=== PATIENT | female | born 1985 | race Caucasian/White ===

== ENCOUNTER 2020-01-24 09:38 | Emergency (ER) | payer OTHER, SELFPAY ==
[2020-01-24 09:57] VITALS: BP 154/63; PULSE 78; RESP 20; TEMP 37.2; O2SAT 98; BMI 25.4
--- NOTE | 2020-01-24 10:10 | PC.NURSE ---
provider at bedside for primary eval.
--- NOTE | 2020-01-24 10:15 | XR_ITS ---
EXAMINATION: XR RIBS, LEFT chest PA CLINICAL INFORMATION: Chest pain. COMPARISON: None TECHNIQUE: 3 views of the left ribs were obtained. Annual chest PA and FINDINGS: Lungs are clear. No consolidation, pneumothorax, or pleural effusion. The cardiomediastinal silhouette and pulmonary vasculature are normal. Multiple views of left ribs reveal no visible rib fracture or bony abnormality. The soft tissues are normal. XR/XR ribs LT min 3V w CXR1V IMPRESSION: Unremarkable chest exam. No visible left rib fracture.
--- NOTE | 2020-01-24 10:15 | ECG_ITS ---
Test Reason : DIFFICULTY BREATHING Blood Pressure : / mmHG Vent. Rate : 055 BPM Atrial Rate : 055 BPM P-R Int : 114 ms QRS Dur : 076 ms QT Int : 404 ms P-R-T Axes : 046 060 053 degrees QTc Int : 386 ms Sinus bradycardia with Premature atrial complexes Otherwise normal ECG When compared to the previous EKG of No significant changes seen Referred By: Alannah Montanez Electronically Signed By:TEENA ULLOA MD
--- NOTE | 2020-01-24 10:26 | ED.GENADULT ---
HPI - General Adult General Chief complaint: Dyspnea <Alannah Montanez NP - Last Filed: 01/24/20 16:10> Stated complaint: Multiple Complaints <Alannah Montanez NP - Last Filed: 01/24/20 16:10> Time Seen by Provider: 01/24/20 09:57 <Alannah Montanez NP - Last Filed: 01/24/20 16:10> Source: patient <Alannah Montanez NP - Last Filed: 01/24/20 16:10> Mode of arrival: ambulatory <EMMA Patterson Last Filed: 01/24/20 16:10> Limitations: no limitations <EMMA Patterson Last Filed: 01/24/20 16:10> History of Present Illness HPI narrative: 34yo female previously healthy Here with multiple complaints. The patient tells me since yesterday she has had some left-sided rib and back and abdominal pain with no radiation. She tells me she has some shortness of breath and feels like the pain takes her breath away. She has a dry occasional cough. No fevers or chills. No nausea, vomiting, diarrhea. No urinary symptoms. The patient went to [facility] and had a rapid COVID test which was reportedly negative and was sent to the emergency department for further evaluation. Of note, the patient tells me she has a abdominal mass which she was seen by her primary care doctor for and has an outpatient ultrasound next week to evaluate further. No weight loss, body aches. NO OCP use, no h.o DVT/PE. patient received a guest relation officer. She denies any injury, trauma, heavy lifting or bending. <Alannah Montanez NP - Last Filed: 01/24/20 16:10> Onset (ago): day(s) <EMMA Patterson Last Filed: 01/24/20 16:10> Related Data Home medications: Home Medications Medication Instructions Recorded Confirmed fluticasone propionate 50 1 spray INTRANASAL BID 01/15/20 01/15/20 mcg/actuation nasal spray,suspension Previous Rx's Medication Instructions Recorded omeprazole 20 mg capsule,delayed 20 mg PO DAILY 30 Days #30 cap 01/15/20 release sumatriptan succinate 25 mg tablet 25 mg PO QID PRN 14 Days #30 tab 01/15/20 acetaminophen 650 mg PO Q6H PRN #20 cap 01/24/20 cyclobenzaprine 10 mg PO TID PRN #20 tab 01/24/20 lidocaine [Lidoderm] 1 patch TOPICAL DAILY #15 ea 01/24/20 ferrous sulfate 325 mg (65 mg 325 mg PO DAILY 60 Days #60 tab 02/06/20 iron) tablet <Alannah Montanez NP - Last Filed: 01/24/20 16:10> Allergies/adverse reactions: Allergies Allergy/AdvReac Type Severity Reaction Status Date / Time prednisone [PREDNISONE] Allergy Unknown SWELLING Unverified 11/09/19 17:14 ketorolac Allergy Swelling Verified 01/15/20 13:56 <Alannah Montanez NP - Last Filed: 01/24/20 16:10> Review of Systems Review of Systems: Yes all other systems are reviewed and are negative <EMMA Patterson Last Filed: 01/24/20 16:10> Constitutional: Constitutional: Reports no additional constitutional complaints, Denies body ache(s), Denies chills, Denies fever(s), Denies headache(s) and Denies weakness <EMMA Patterson Last Filed: 01/24/20 16:10> Eyes: Eyes: Reports no additional eye complaints and Denies change in vision <EMMA Patterson Last Filed: 01/24/20 16:10> ENT: Reports system reviewed and no additional complaints, except as documented, Denies dizziness, Denies headache(s), Denies nasal congestion, Denies nasal discharge and Denies neck pain <EMMA Patterson Last Filed: 01/24/20 16:10> Cardiovascular: Cardiovascular: Reports no additional cardiovascular complaints, Reports chest pain, Denies leg edema and Reports dyspnea <EMMA Patterson Last Filed: 01/24/20 16:10> Respiratory: Respiratory: Reports no additional respiratory complaints, Reports cough and Reports dyspnea <EMMA Patterson Last Filed: 01/24/20 16:10> Gastrointestinal: Gastrointestinal: Reports no additional gastrointestinal complaints, Reports abdominal pain, Denies diarrhea, Denies nausea and Denies vomiting <Alannah Montanez NP - Last Filed: 01/24/20 16:10> Genitourinary: Genitourinary: Reports no additional female genitourinary complaints and Denies urinary incontinence <Alannah Montanez NP - Last Filed: 01/24/20 16:10> Musculoskeletal: Musculoskeletal: Reports no additional musculoskeletal complaints, Reports back pain, Denies arthralgias, Denies joint swelling, Denies neck pain, Denies numbness and Denies tingling <Alannah Montanez NP - Last Filed: 01/24/20 16:10> Integumentary/Breasts: Skin/Breast: Reports system reviewed and no additional complaints, except as docu and Denies rash <Alannah Montanez NP - Last Filed: 01/24/20 16:10> Neurologic: Reports system reviewed and no additional complaints, except as documented, Denies Abnormal speech present, Denies dizziness, Denies headache(s), Denies numbness, Denies tingling and Denies weakness <Alannah Montanez NP - Last Filed: 01/24/20 16:10> PMFSH Past Medical History Attestation statement: The following information was validated with the patient. <Alannah Montanez NP - Last Filed: 01/24/20 16:10> Source: old records reviewed and nursing notes reviewed <Alannah Montanez NP - Last Filed: 01/24/20 16:10> Medical History: Medical History (Updated 02/09/20 @ 18:35 by Renetta Davis NP) Epigastric hernia Lump in the abdomen Migraine <Alannah Montanez NP - Last Filed: 01/24/20 16:10> Family History Family History: Family History Mother Fibromyalgia Father Lyme disease <Alannah Montanez NP - Last Filed: 01/24/20 16:10> Social History Social History: Social History Alcohol intake: never Smoking Status: Former smoker <Alannah Montanez NP - Last Filed: 01/24/20 16:10> Physical Exam Vital Signs: Vital Signs: Last Vital Signs Temp 99.0 F 01/24/20 09:57 Pulse 78 01/24/20 09:57 Resp 20 01/24/20 09:57 BP 154/63 H 01/24/20 09:57 Pulse Ox 98 01/24/20 09:57 Body Mass Index 25.4 <Alannah Montanez NP - Last Filed: 01/24/20 16:10> Vital Signs: Last Vital Signs Temp 99.0 F 01/24/20 09:57 Pulse 78 01/24/20 09:57 Resp 01/24/20 09:57 BP 154/63 H 01/24/20 09:57 Pulse Ox 98 01/24/20 09:57 Body Mass Index 25.4 <Rusty Wan MD - Last Filed: 02/11/20 20:28> Const: General: cooperative, healthy appearing, comfortable and no acute distress <Alannah Montanez NP - Last Filed: 01/24/20 16:10> Orientation/consciousness: patient oriented x3 <Alannah Montanez NP - Last Filed: 01/24/20 16:10> Limitations: no limitations <Alannah Montanez NP - Last Filed: 01/24/20 16:10> HENMT: Head: Yes normal to inspection <Alannah Montanez NP - Last Filed: 01/24/20 16:10> Ears: hearing grossly normal bilaterally <Alannah Montanez NP - Last Filed: 01/24/20 16:10> General nose exam: Normal external nose present <Alannah Montanez NP - Last Filed: 01/24/20 16:10> Face and sinus: Yes normal facial exam <Alannah Montanez NP - Last Filed: 01/24/20 16:10> Mouth: Normal oral and palatal mucosa present <Alannah Montanez NP - Last Filed: 01/24/20 16:10> Throat: Yes posterior oropharynx normal <Alannah Montanez NP - Last Filed: 01/24/20 16:10> Eyes: General: appearance normal, both eyes and all related structures <Alannah Montanez NP - Last Filed: 01/24/20 16:10> Pupils: Equal, round and reactive pupils present <Alannah Montanez NP - Last Filed: 01/24/20 16:10> Neck: Neck: Yes normal visual inspection <Alannah Montanez NP - Last Filed: 01/24/20 16:10> Chest: Other: Left lateral and anterior rib tenderness with no crepitus, ecchymosis, deformity. Pain is worsened with palpation and movement. <Alannah Montanez NP - Last Filed: 01/24/20 16:10> Chest palpation & inspection: normal inspection of the chest <Alannah Montanez NP - Last Filed: 01/24/20 16:10> Resp: Effort & Inspection: normal respiratory effort <Alannah Montanez NP - Last Filed: 01/24/20 16:10> Auscultation: clear to auscultation bilaterally <Alannah Montanez NP - Last Filed: 01/24/20 16:10> Cardio: Rate: regular rate <Alannah Montanez NP - Last Filed: 01/24/20 16:10> Rhythm: regular rhythm <Alannah Montanez NP - Last Filed: 01/24/20 16:10> Peripheral pulses: Peripheral pulses 2+ throughout <Alannah Montanez NP - Last Filed: 01/24/20 16:10> GI: Other: just above the umbilicus there is a firm circular mass about the size of all of which is tender. There is no redness or fluctuance or induration. <Alannah Montanez NP - Last Filed: 01/24/20 16:10> Inspection: Yes normal to inspection <Alannah Montanez NP - Last Filed: 01/24/20 16:10> Palpation (GI): Soft to palpation, Tenderness to palpation present (GI) in the LUQ and no guarding <Alannah Montanez NP - Last Filed: 01/24/20 16:10> Auscultation: normal bowel sounds <Alannah Montanez NP - Last Filed: 01/24/20 16:10> : General: Yes no CVA tenderness <Alannah Montanez NP - Last Filed: 01/24/20 16:10> Back/Spine/Pelvis: Other: Left lumbar and lower thoracic soft tissue and paraspinal tenderness. No midline tenderness, step-offs or deformities. Pain is worsened with flexion and extension of the lumbar spine. <Alannah Montanez NP - Last Filed: 01/24/20 16:10> Back: no CVA tenderness <Alannah Montanez NP - Last Filed: 01/24/20 16:10> Thoracic/Lumbar Spine: thoracic and lumbar spine normal to inspection <Alannah Montanez NP - Last Filed: 01/24/20 16:10> Skin: General skin exam: no rashes or lesions noted <Alannah Montanez NP - Last Filed: 01/24/20 16:10> Neuro: General: patient oriented x3, no focal motor deficits and normal sensation to monofilament <Alannah Montanez NP - Last Filed: 01/24/20 16:10> Cranial nerves: Yes Equal, round and reactive pupils present <Alannah Montanez NP - Last Filed: 01/24/20 16:10> Cognition (Neuro): normal cognition <Alannah Montanez NP - Last Filed: 01/24/20 16:10> Speech: No Abnormal speech present <Alannah Montanez NP - Last Filed: 01/24/20 16:10> Gait exam (Neuro): Normal gait present <Alannah Montanez NP - Last Filed: 01/24/20 16:10> Motor exam (neuro): 5/5 motor strength present throughout <Alannah Montanez NP - Last Filed: 01/24/20 16:10> Extrem: General: Yes normal to inspection <Alannah Montanez NP - Last Filed: 01/24/20 16:10> Course Course Course Narrative: 34-year-old female here with complaints of left sided back/abdominal/chest pain. Seems more MS, reproducible on exam with no other focal finding on exam. does have a small palpable mass in the upper abdomen which patient tells me she has an outpatient ultrasound which is pending. stable vital signs. Will check labs, UA, ur preg, EKG, CXR, SARS/flu. 1540- CT shows moderate constipation Otherwise unremarkable. Labs, UA, EKG, chest x-ray and COVID all negative. I went to re-examine the patient and she is telling me she is feeling much improved. Likely musculoskeletal. I discussed the findings with the patient and she agrees that she feels much improved. We discussed supportive care at home, and follow up with primary care doctor closely. Reviewed worrisome signs and symptoms and when to return to the emergency department. Comfortable with discharge home. Of note, the patient does have a small upper abdominal mass. It is not noted on the CT. She is already scheduled for outpatient ultrasound and follow up with her primary care doctor. The patient will continue to follow this plan. <Alannah Montanez NP - Last Filed: 01/24/20 16:10> I have reviewed the chart <Rusty Wan MD - Last Filed: 02/11/20 20:28> Medical Decision Making MDM Narrative Medical decision making narrative: ACS, PE, renal colic, pancreatitis, MS vs lumbar strain, abdominal mass Less likely ACS with symptoms greater than a few days, unremarkable troponin and EKG. Less likely PE with negative D-dimer. Less likely renal colic with unremarkable CT and no evidence of hematuria in the urine. Less likely pancreatitis is unremarkable CT and negative lipase. <Alannah Montanez NP - Last Filed: 01/24/20 16:10> Medical Records Medical records reviewed: Yes I reviewed the patient's medical records. <Alannah Montanez NP - Last Filed: 01/24/20 16:10> Lab Data Lab results reviewed: Yes I reviewed the patient's lab results. <Alannah Montanez NP - Last Filed: 01/24/20 16:10> Result diagrams: : 01/24/20 10:46 01/24/20 10:46 <Alannha Montanez NP - Last Filed: 01/24/20 16:10> Labs: Lab Results 12/04/1301/24/20 01/24/20 Range/Units 10:33 10:46 10:46 WBC 6.3 (4.8-10.8) X10*3/uL RBC 3.72 L (4.20-5.50) X10*6/uL Hgb 11.8 L (12.0-16.0) g/dl Hct 34.1 L (37-47) % MCV 91.7 (80-98) fL MCH 31.7 (27.0-33.0) pg MCHC 34.6 (31.0-35.0) g/dl RDW 11.9 (11.0-16.0) % Plt Count 193 (160-400) X10*3/uL MPV 10.4 (9.4-12.3) fL Immature Gran % (Auto) 0.2 (0.0-0.4) % Neut % (Auto) 45.4 (45-73) % Lymph % (Auto) 42.7 H (20-40) % [place] % (Auto) 10.1 (2-11) % Eos % (Auto) 1.1 (0-4) % Baso % (Auto) 0.5 (0-2) % Lymph # (Auto) 2.7 (1.2-4.9) X10*3/uL [place] # (Auto) 0.6 (0.1-1.2) X10*3/uL Eos # (Auto) 0.1 (0.0-0.4) X10*3/uL Baso # (Auto) 0.0 (0.0-0.2) X10*3/uL Abs Immat Gran (auto) 0.01 (0.00-0.03) X10*3/uL Absolute Neuts (auto) 2.9 (2.0-8.3) X10*3/uL Absolute Nucleated RBC 0.000 (0.0-0.012) X10*3/uL Nucleated RBC % (auto) 0.0 (0.0-0.2) /100WBC PT 12.1 (10.8-13.0) SEC INR 1.0 (0.9-1.1) D-Dimer NG/ML Sodium (135-145) mmol/L Potassium (3.3-5.1) mmol/l Chloride (96-108) mmol/L Carbon Dioxide (22-29) mmol/L Anion Gap (12-20) BUN (9-16) mg/dL Creatinine (0.5-1.4) mg/dL Estim Creat Clear Calc Estimated GFR Random Glucose (60-115) mg/dL Calcium (8.4-10.2) mg/dL Magnesium (1.6-2.6) mg/dL Total Bilirubin (0.0-1.0) mg/dL Direct Bilirubin (0.0-0.5) mg/dL AST (5-31) U/L ALT (0-31) U/L Alkaline Phosphatase (39-117) U/L Troponin I High Sens (<3.5-17.0) ng/L Total Protein (6.5-8.0) g/dL Albumin (3.5-5.0) g/dL Lipase (8-78) U/L Urine Color YELLOW Urine Appearance CLEAR Urine pH 7.5 (5.0-8.0) Ur Specific [place] 1.015 (1.005-1.025) Urine Protein NEG (NEG-TRACE) MG/DL Urine Glucose (UA) NEG (NEG) MG/DL Urine Ketones NEG (NEG) MG/DL Urine Blood TRACE (NEG) Urine Nitrite NEG (NEG) Ur Leukocyte Esterase NEG (NEG) Urine RBC 1-4 (0) /HPF Urine WBC 0 (0-4) /HPF Ur Squamous Epith Cells TRACE /LPF Urine Bacteria NONE /LPF Urine Test NEGATIVE (NEGATIVE) Coronavirus (PCR) (Negative) Influenza Type A (PCR) (Negative) Influenza Type B (PCR) (Negative) RSV RNA Qual (PCR) (Negative) 01/24/20 01/24/20 01/24/20 Range/Units 10:46 10:46 10:46 WBC (4.8-10.8) X10*3/uL RBC (4.20-5.50) X10*6/uL Hgb (12.0-16.0) g/dl Hct (37-47) % MCV (80-98) fL MCH (27.0-33.0) pg MCHC (31.0-35.0) g/dl RDW (11.0-16.0) % Plt Count (160-400) X10*3/uL MPV (9.4-12.3) fL Immature Gran % (Auto) (0.0-0.4) % Neut % (Auto) (45-73) % Lymph % (Auto) (20-40) % [place] % (Auto) (2-11) % Eos % (Auto) (0-4) % Baso % (Auto) (0-2) % Lymph # (Auto) (1.2-4.9) X10*3/uL [place] # (Auto) (0.1-1.2) X10*3/uL Eos # (Auto) (0.0-0.4) X10*3/uL Baso # (Auto) (0.0-0.2) X10*3/uL Abs Immat Gran (auto) (0.00-0.03) X10*3/uL Absolute Neuts (auto) (2.0-8.3) X10*3/uL Absolute Nucleated RBC (0.0-0.012) X10*3/uL Nucleated RBC % (auto) (0.0-0.2) /100WBC PT (10.8-13.0) SEC INR (0.9-1.1) D-Dimer < 200 NG/ML Sodium 139 (135-145) mmol/L Potassium 3.9 (3.3-5.1) mmol/l Chloride 107 (96-108) mmol/L Carbon Dioxide 25 (22-29) mmol/L Anion Gap 11 L (12-20) BUN 10 (9-16) mg/dL Creatinine 0.80 (0.5-1.4) mg/dL Estim Creat Clear Calc 91.5 Estimated GFR > 60 Random Glucose 90 (60-115) mg/dL Calcium 9.2 (8.4-10.2) mg/dL Magnesium 2.1 (1.6-2.6) mg/dL Total Bilirubin 0.7 (0.0-1.0) mg/dL Direct Bilirubin 0.2 (0.0-0.5) mg/dL AST 11 (5-31) U/L ALT 9 (0-31) U/L Alkaline Phosphatase 39 (39-117) U/L Troponin I High Sens < 3.5 (<3.5-17.0) ng/L Total Protein 6.7 (6.5-8.0) g/dL Albumin 4.5 (3.5-5.0) g/dL Lipase 17 (8-78) U/L Urine Color Urine Appearance Urine pH (5.0-8.0) Ur Specific [place] (1.005-1.025) Urine Protein (NEG-TRACE) MG/DL Urine Glucose (UA) (NEG) MG/DL Urine Ketones (NEG) MG/DL Urine Blood (NEG) Urine Nitrite (NEG) Ur Leukocyte Esterase (NEG) Urine RBC (0) /HPF Urine WBC (0-4) /HPF Ur Squamous Epith Cells /LPF Urine Bacteria /LPF Urine Test (NEGATIVE) Coronavirus (PCR) (Negative) Influenza Type A (PCR) (Negative) Influenza Type B (PCR) (Negative) RSV RNA Qual (PCR) (Negative) 01/24/20 Range/Units 12:20 WBC (4.8-10.8) X10*3/uL RBC (4.20-5.50) X10*6/uL Hgb (12.0-16.0) g/dl Hct (37-47) % MCV (80-98) fL MCH (27.0-33.0) pg MCHC (31.0-35.0) g/dl RDW (11.0-16.0) % Plt Count (160-400) X10*3/uL MPV (9.4-12.3) fL Immature Gran % (Auto) (0.0-0.4) % Neut % (Auto) (45-73) % Lymph % (Auto) (20-40) % [place] % (Auto) (2-11) % Eos % (Auto) (0-4) % Baso % (Auto) (0-2) % Lymph # (Auto) (1.2-4.9) X10*3/uL [place] # (Auto) (0.1-1.2) X10*3/uL Eos # (Auto) (0.0-0.4) X10*3/uL Baso # (Auto) (0.0-0.2) X10*3/uL Abs Immat Gran (auto) (0.00-0.03) X10*3/uL Absolute Neuts (auto) (2.0-8.3) X10*3/uL Absolute Nucleated RBC (0.0-0.012) X10*3/uL Nucleated RBC % (auto) (0.0-0.2) /100WBC PT (10.8-13.0) SEC INR (0.9-1.1) D-Dimer NG/ML Sodium (135-145) mmol/L Potassium (3.3-5.1) mmol/l Chloride (96-108) mmol/L Carbon Dioxide (22-29) mmol/L Anion Gap (12-20) BUN (9-16) mg/dL Creatinine (0.5-1.4) mg/dL Estim Creat Clear Calc Estimated GFR Random Glucose (60-115) mg/dL Calcium (8.4-10.2) mg/dL Magnesium (1.6-2.6) mg/dL Total Bilirubin (0.0-1.0) mg/dL Direct Bilirubin (0.0-0.5) mg/dL AST (5-31) U/L ALT (0-31) U/L Alkaline Phosphatase (39-117) U/L Troponin I High Sens (<3.5-17.0) ng/L Total Protein (6.5-8.0) g/dL Albumin (3.5-5.0) g/dL Lipase (8-78) U/L Urine Color Urine Appearance Urine pH (5.0-8.0) Ur Specific [place] (1.005-1.025) Urine Protein (NEG-TRACE) MG/DL Urine Glucose (UA) (NEG) MG/DL Urine Ketones (NEG) MG/DL Urine Blood (NEG) Urine Nitrite (NEG) Ur Leukocyte Esterase (NEG) Urine RBC (0) /HPF Urine WBC (0-4) /HPF Ur Squamous Epith Cells /LPF Urine Bacteria /LPF Urine Test (NEGATIVE) Coronavirus (PCR) NEGATIVE (Negative) Influenza Type A (PCR) NEGATIVE (Negative) Influenza Type B (PCR) NEGATIVE (Negative) RSV RNA Qual (PCR) NEGATIVE (Negative) <Alannah Montanez, [employer]PLICATION DEVELOPER - Last Filed: 01/24/20 16:10> Lab Results 01/24/20 01/24/20 01/24/20 Range/Units 10:33 10:46 10:46 WBC 6.3 (4.8-10.8) X10*3/uL RBC 3.72 L (4.20-5.50) X10*6/uL Hgb 11.8 L (12.0-16.0) g/dl Hct 34.1 L (37-47) % MCV 91.7 (80-98) fL MCH 31.7 (27.0-33.0) pg MCHC 34.6 (31.0-35.0) g/dl RDW 11.9 (11.0-16.0) % Plt Count 193 (160-400) X10*3/uL MPV 10.4 (9.4-12.3) fL Immature Gran % (Auto) 0.2 (0.0-0.4) % Neut % (Auto) 45.4 (45-73) % Lymph % (Auto) 42.7 H (20-40) % [place] % (Auto) 10.1 (2-11) % Eos % (Auto) 1.1 (0-4) % Baso % (Auto) 0.5 (0-2) % Lymph # (Auto) 2.7 (1.2-4.9) X10*3/uL [place] # (Auto) 0.6 (0.1-1.2) X10*3/uL Eos # (Auto) 0.1 (0.0-0.4) X10*3/uL Baso # (Auto) 0.0 (0.0-0.2) X10*3/uL Abs Immat Gran (auto) 0.01 (0.00-0.03) X10*3/uL Absolute Neuts (auto) 2.9 (2.0-8.3) X10*3/uL Absolute Nucleated RBC 0.000 (0.0-0.012) X10*3/uL Nucleated RBC % (auto) 0.0 (0.0-0.2) /100WBC PT 12.1 (10.8-13.0) SEC INR 1.0 (0.9-1.1) D-Dimer NG/ML Sodium (135-145) mmol/L Potassium (3.3-5.1) mmol/l Chloride (96-108) mmol/L Carbon Dioxide (22-29) mmol/L Anion Gap (12-20) BUN (9-16) mg/dL Creatinine (0.5-1.4) mg/dL Estim Creat Clear Calc Estimated GFR Random Glucose (60-115) mg/dL Calcium (8.4-10.2) mg/dL Magnesium (1.6-2.6) mg/dL Total Bilirubin (0.0-1.0) mg/dL Direct Bilirubin (0.0-0.5) mg/dL AST (5-31) U/L ALT (0-31) U/L Alkaline Phosphatase (39-117) U/L Troponin I High Sens (<3.5-17.0) ng/L Total Protein (6.5-8.0) g/dL Albumin (3.5-5.0) g/dL Lipase (8-78) U/L Urine Color YELLOW Urine Appearance CLEAR Urine pH 7.5 (5.0-8.0) Ur Specific [place] 1.015 (1.005-1.025) Urine Protein NEG (NEG-TRACE) MG/DL Urine Glucose (UA) NEG (NEG) MG/DL Urine Ketones NEG (NEG) MG/DL Urine Blood TRACE (NEG) Urine Nitrite NEG (NEG) Ur Leukocyte Esterase NEG (NEG) Urine RBC 1-4 (0) /HPF Urine WBC 0 (0-4) /HPF Ur Squamous Epith Cells TRACE /LPF Urine Bacteria NONE /LPF Urine Test NEGATIVE (NEGATIVE) Coronavirus (PCR) (Negative) Influenza Type A (PCR) (Negative) Influenza Type B (PCR) (Negative) RSV RNA Qual (PCR) (Negative) 01/24/20 01/24/20 01/24/20 Range/Units 10:46 10:46 10:46 WBC (4.8-10.8) X10*3/uL RBC (4.20-5.50) X10*6/uL Hgb (12.0-16.0) g/dl Hct (37-47) % MCV (80-98) fL MCH (27.0-33.0) pg MCHC (31.0-35.0) g/dl RDW (11.0-16.0) % Plt Count (160-400) X10*3/uL MPV (9.4-12.3) fL Immature Gran % (Auto) (0.0-0.4) % Neut % (Auto) (45-73) % Lymph % (Auto) (20-40) % [place] % (Auto) (2-11) % Eos % (Auto) (0-4) % Baso % (Auto) (0-2) % Lymph # (Auto) (1.2-4.9) X10*3/uL [place] # (Auto) (0.1-1.2) X10*3/uL Eos # (Auto) (0.0-0.4) X10*3/uL Baso # (Auto) (0.0-0.2) X10*3/uL Abs Immat Gran (auto) (0.00-0.03) X10*3/uL Absolute Neuts (auto) (2.0-8.3) X10*3/uL Absolute Nucleated RBC (0.0-0.012) X10*3/uL Nucleated RBC % (auto) (0.0-0.2) /100WBC PT (10.8-13.0) SEC INR (0.9-1.1) D-Dimer < 200 NG/ML Sodium 139 (135-145) mmol/L Potassium 3.9 (3.3-5.1) mmol/l Chloride 107 (96-108) mmol/L Carbon Dioxide 25 (22-29) mmol/L Anion Gap 11 L (12-20) BUN 10 (9-16) mg/dL Creatinine 0.80 (0.5-1.4) mg/dL Estim Creat Clear Calc 91.5 Estimated GFR > 60 Random Glucose 90 (60-115) mg/dL Calcium 9.2 (8.4-10.2) mg/dL Magnesium 2.1 (1.6-2.6) mg/dL Total Bilirubin 0.7 (0.0-1.0) mg/dL Direct Bilirubin 0.2 (0.0-0.5) mg/dL AST 11 (5-31) U/L ALT 9 (0-31) U/L Alkaline Phosphatase 39 (39-117) U/L Troponin I High Sens < 3.5 (<3.5-17.0) ng/L Total Protein 6.7 (6.5-8.0) g/dL Albumin 4.5 (3.5-5.0) g/dL Lipase 17 (8-78) U/L Urine Color Urine Appearance Urine pH (5.0-8.0) Ur Specific [place] (1.005-1.025) Urine Protein (NEG-TRACE) MG/DL Urine Glucose (UA) (NEG) MG/DL Urine Ketones (NEG) MG/DL Urine Blood (NEG) Urine Nitrite (NEG) Ur Leukocyte Esterase (NEG) Urine RBC (0) /HPF Urine WBC (0-4) /HPF Ur Squamous Epith Cells /LPF Urine Bacteria /LPF Urine Test (NEGATIVE) Coronavirus (PCR) (Negative) Influenza Type A (PCR) (Negative) Influenza Type B (PCR) (Negative) RSV RNA Qual (PCR) (Negative) 01/24/20 Range/Units 12:20 WBC (4.8-10.8) X10*3/uL RBC (4.20-5.50) X10*6/uL Hgb (12.0-16.0) g/dl Hct (37-47) % MCV (80-98) fL MCH (27.0-33.0) pg MCHC (31.0-35.0) g/dl RDW (11.0-16.0) % Plt Count (160-400) X10*3/uL MPV (9.4-12.3) fL Immature Gran % (Auto) (0.0-0.4) % Neut % (Auto) (45-73) % Lymph % (Auto) (20-40) % [place] % (Auto) (2-11) % Eos % (Auto) (0-4) % Baso % (Auto) (0-2) % Lymph # (Auto) (1.2-4.9) X10*3/uL [place] # (Auto) (0.1-1.2) X10*3/uL Eos # (Auto) (0.0-0.4) X10*3/uL Baso # (Auto) (0.0-0.2) X10*3/uL Abs Immat Gran (auto) (0.00-0.03) X10*3/uL Absolute Neuts (auto) (2.0-8.3) X10*3/uL Absolute Nucleated RBC (0.0-0.012) X10*3/uL Nucleated RBC % (auto) (0.0-0.2) /100WBC PT (10.8-13.0) SEC INR (0.9-1.1) D-Dimer NG/ML Sodium (135-145) mmol/L Potassium (3.3-5.1) mmol/l Chloride (96-108) mmol/L Carbon Dioxide (22-29) mmol/L Anion Gap (12-20) BUN (9-16) mg/dL Creatinine (0.5-1.4) mg/dL Estim Creat Clear Calc Estimated GFR Random Glucose (60-115) mg/dL Calcium (8.4-10.2) mg/dL Magnesium (1.6-2.6) mg/dL Total Bilirubin (0.0-1.0) mg/dL Direct Bilirubin (0.0-0.5) mg/dL AST (5-31) U/L ALT (0-31) U/L Alkaline Phosphatase (39-117) U/L Troponin I High Sens (<3.5-17.0) ng/L Total Protein (6.5-8.0) g/dL Albumin (3.5-5.0) g/dL Lipase (8-78) U/L Urine Color Urine Appearance Urine pH (5.0-8.0) Ur Specific [place] (1.005-1.025) Urine Protein (NEG-TRACE) MG/DL Urine Glucose (UA) (NEG) MG/DL Urine Ketones (NEG) MG/DL Urine Blood (NEG) Urine Nitrite (NEG) Ur Leukocyte Esterase (NEG) Urine RBC (0) /HPF Urine WBC (0-4) /HPF Ur Squamous Epith Cells /LPF Urine Bacteria /LPF Urine Test (NEGATIVE) Coronavirus (PCR) NEGATIVE (Negative) Influenza Type A (PCR) NEGATIVE (Negative) Influenza Type B (PCR) NEGATIVE (Negative) RSV RNA Qual (PCR) NEGATIVE (Negative) <Rusty Wan MD - Last Filed: 02/11/20 20:28> Imaging Data Chest x-ray: Attestation: I personally reviewed and interpreted this imaging study as follows: <Alannah Montanez NP - Last Filed: 01/24/20 16:10> Radiologist's impression: EXAMINATION: XR RIBS, LEFT chest PA CLINICAL INFORMATION: Chest pain. COMPARISON: None TECHNIQUE: 3 views of the left ribs were obtained. Annual chest PA and FINDINGS: Lungs are clear. No consolidation, pneumothorax, or pleural effusion. The cardiomediastinal silhouette and pulmonary vasculature are normal. Multiple views of left ribs reveal no visible rib fracture or bony abnormality. The soft tissues are normal. XR/XR ribs LT min 3V w CXR1V IMPRESSION: Unremarkable chest exam. No visible left rib fracture. <Alannah Montanez NP - Last Filed: 01/24/20 16:10> ECG Data Attestation: I personally reviewed and interpreted this ECG as follows: <Alannah Montanez NP - Last Filed: 01/24/20 16:10> Interpretation: Sinus bradycardia with a rate of 55. Occasional PACs, normal [place], normal QRS, normal QT. <Alannah Montanez NP - Last Filed: 01/24/20 16:10> Discharge Plan Discharge Clinical Impression: Lump in the abdomen, Abdominal pain, Lumbar strain <Alannah Montanez NP - Last Filed: 01/24/20 16:10> Patient Disposition: Home, Self-Care <Alannah Montanez NP - Last Filed: 01/24/20 16:10> Instructions: Low Back Strain (ED), Abdominal Pain (ED) <Alnanah Montanez NP - Last Filed: 01/24/20 16:10> Additional Instructions: heat or ice Gentle stretching No heavy lifting or bending <EMMA Patterson Last Filed: 01/24/20 16:10> Prescriptions: New cyclobenzaprine 10 mg tablet 10 mg PO TID PRN (Reason: muscle spasm) Qty: 20 RF: 0 lidocaine [Lidoderm] 5 % adhesive patch,medicated 1 patch topical DAILY Qty: 15 RF: 0 acetaminophen 325 mg capsule 650 mg PO Q6H PRN (Reason: pain) Qty: 20 RF: 0 No Action ferrous sulfate 325 mg (65 mg iron) tablet 325 mg PO DAILY 60 Days Qty: 60 RF: 0 fluticasone propionate 50 mcg/actuation spray,suspension 1 spray intranasal BID RF: 0 omeprazole 20 mg capsule,delayed release(DR/EC) 20 mg PO DAILY 30 Days Qty: 30 RF: 0 sumatriptan succinate 25 mg tablet 25 mg PO QID PRN (Reason: migraine headache) 14 Days Qty: 30 RF: 0 <Alannah Montanez NP - Last Filed: 01/24/20 16:10> Referrals: Physician,None [Primary Care Provider] - 2 days <Alannah Montanez NP - Last Filed: 01/24/20 16:10> Stand Alone Forms: Work/School Release <Alannah Montanez NP - Last Filed: 01/24/20 16:10> Interventions: ED Discharge Assessment Last Done: 01/24/20 15:43 <Alannah Montanez NP - Last Filed: 01/24/20 16:10> Discharge Date/Time: 01/24/20 16:07 <Alannah Montanez NP - Last Filed: 01/24/20 16:10>
[2020-01-24] MEDS: Morphine Sulfate 4 MG/ML CARTRIDGE IVPUSH (10:50)
[2020-01-24 10:51] LABS: Glucose Urine UA NEG (NEG); Leukocyte Esterase Urine NEG (NEG); Nitrite Urine NEG (NEG); PH 7.5 (5.0-8.0); Specific Gravity - Urine 1.015 (1.005-1.025); Urine Blood TRACE (NEG); Urine Ketones NEG (NEG); Urine Protein NEG (NEG-TRACE)
[2020-01-24 10:52] LABS: MANUAL DIFF FLAG NO
[2020-01-24 10:53] LABS: Basophils Percent Auto 0.5 % (0-2); Eosinophils Absolute Auto 0.1 X10*3/uL (0.0-0.4); Eosinophils Percent Auto 1.1 % (0-4); Hematocrit 34.1 % (37-47); Hemoglobin 11.8 g/dl (12.0-16.0); Imm Gran Abs Auto 0.01 X10*3/uL (0.00-0.03); Imm Gran Pct Auto 0.2 % (0.0-0.4); Lymphocytes Absolute Auto 2.7 X10*3/uL (1.2-4.9); Lymphocytes Percent Auto 42.7 % (20-40); Mean Corpuscular HGB Conc 34.6 g/dl (31.0-35.0); Mean Corpuscular Hemoglobin 31.7 pg (27.0-33.0); Mean Corpuscular Volume 91.7 fL (80-98); Mean Platelet Volume 10.4 fL (9.4-12.3); Monocytes Absolute Auto 0.6 X10*3/uL (0.1-1.2); Monocytes Percent Auto 10.1 % (2-11); Neutrophils Absolute Auto 2.9 X10*3/uL (2.0-8.3); Neutrophils Percent Auto 45.4 % (45-73); Platelet Count 193 X10*3/uL (160-400); Red Blood Count 3.72 X10*6/uL (4.20-5.50); Red Cell Distribution Width 11.9 % (11.0-16.0); White Blood Count 6.3 X10*3/uL (4.8-10.8)
[2020-01-24 10:57] LABS: Appearance Urine CLEAR; Color Urine YELLOW
[2020-01-24 10:58] LABS: UPreg QC Valid YES; Urine Pregnancy NEGATIVE (NEGATIVE)
[2020-01-24 11:00] LABS: Prothrombin Time 12.1 SEC (10.8-13.0)
[2020-01-24 11:07] LABS: Squamous Epithelial Cell Urine TRACE /LPF; WBC Urine 0 /HPF (0-4)
[2020-01-24 11:09] LABS: D Dimer < 200 NG/ML
[2020-01-24 11:21] LABS: Alanine Aminotransferase 9 U/L (0-31); Albumin Level 4.5 g/dL (3.5-5.0); Alkaline Phosphatase 39 U/L (39-117); Anion Gap 11 (12-20); Aspartate Amino Transferase 11 U/L (5-31); Bilirubin Direct 0.2 mg/dL (0.0-0.5); Bilirubin Total 0.7 mg/dL (0.0-1.0); Blood Urea Nitrogen 10 mg/dL (9-16); Calcium 9.2 mg/dL (8.4-10.2); Carbon Dioxide 25 mmol/L (22-29); Chloride 107 mmol/L (96-108); Creatinine Clr Calc Pharmacy 91.5; Estimated Glomerular Filt Rate > 60; Glucose Random 90 mg/dL (60-115); Lipase 17 U/L (8-78); Magnesium 2.1 mg/dL (1.6-2.6); Potassium 3.9 mmol/l (3.3-5.1); Sodium 139 mmol/L (135-145); Total Protein 6.7 g/dL (6.5-8.0)
[2020-01-24 11:28] LABS: Troponin-I High Sensitivity < 3.5 ng/L (<3.5-17.0)
--- NOTE | 2020-01-24 11:33 | CT_ITS ---
EXAMINATION: CT ABDOMEN AND PELVIS WITH CONTRAST CLINICAL INFORMATION: Diffuse abdominal pain, mass in abdomen. COMPARISON: None TECHNIQUE: Multidetector volumetric images were obtained from the superior aspect of the liver through the pubic symphysis following administration 85 mL of Omnipaque 350 intravenous contrast. Sagittal and coronal reformatted images were obtained on the technologist's workstation. Oral contrast: No This CT examination was performed using dose optimization techniques as appropriate, variously including the following: *Automated exposure control *Adjustment of mA and/or kV according to patient size (this includes techniques or standardized protocols for targeted exams where dose is matched to indication/reason for exam; i.e. extremities or head) *Use of iterative reconstruction technique DLP: 497 mGy-cm FINDINGS: LUNG BASES: The lung bases are unremarkable. The heart size is normal. LIVER, GALLBLADDER, AND BILIARY TREE: The liver is normal in size, shape, and attenuation. No focal hepatic lesion or biliary ductal dilatation is present. The gallbladder is unremarkable with no evidence of radiopaque gallstones, gallbladder wall thickening, or obvious pericholecystic inflammatory changes. PANCREAS: Unremarkable. SPLEEN: Unremarkable. ADRENAL GLANDS: Unremarkable. KIDNEYS AND URETERS: The kidneys are normal in size, shape, and attenuation. No hydronephrosis, hydroureter, or calculi seen. No perinephric stranding. BLADDER: Unremarkable. GASTROINTESTINAL TRACT: There is scattered stool and gas seen throughout the colon without significant distention. The small bowel loops are normal caliber. The appendix is not seen well. No free fluid or free air. ABDOMINAL WALL: No significant hernia is appreciated. LYMPH NODES: Normal. VASCULAR: Unremarkable. PELVIC VISCERA: The uterus is anteverted and appears unremarkable. There are hypodensities seen in both ovaries likely small cysts. There is no free fluid in the cul-de-sac. OSSEOUS STRUCTURES: Incidental finding of L4 limbus vertebra. The rest of the lumbar spine is unremarkable. CT/CT abdomen pelvis w con IMPRESSION: 1. No acute intra-abdominal process seen. 2. Moderate constipation. No acute obstruction seen.
[2020-01-24] MEDS: iohexoL 350 MG/ML 100 ML INFUS..BTL IV (12:14)
[2020-01-24 13:20] LABS: Influenza A PCR NEGATIVE (Negative); Influenza B PCR NEGATIVE (Negative); Resp Syncy Virus RNA Qual PCR NEGATIVE (Negative); SARS COV2 PCR INHOUSE NEGATIVE (Negative)
== END 2020-01-24 16:07 | disposition home or self-care (01) ==
PROVIDERS: Nurse Practitioner Family; Emergency Provider Emergency Medicine
DX: S39.012A Strain of muscle, fascia and tendon of lower back, initial encounter (principal); R07.9 Chest pain, unspecified; R10.9 Unspecified abdominal pain; X58.XXXA Exposure to other specified factors, initial encounter; Y93.9 Activity, unspecified; Y92.9 Unspecified place or not applicable; Y99.9 Unspecified external cause status; Z87.891 Personal history of nicotine dependence; Z79.899 Other long term (current) drug therapy; Z20.828 Contact with and (suspected) exposure to other viral communicable diseases
CPT/HCPCS: 0241U; 36415; 71101; 74177; 80048; 80076; 81001; 81025; 83690; 83735; 84484; 85025; 85379; 85610; 93005; 96374; 99283; 99284; J2270; Q9967

== ENCOUNTER 2020-02-06 05:51 | Outpatient (REF) | payer OTHER, SELFPAY ==
--- NOTE | 2020-02-06 07:03 | US_ITS ---
EXAMINATION: US ABDOMEN LIMITED CLINICAL INFORMATION: Other intra-abdominal and pelvic swelling, mass and lump. COMPARISON: CT abdomen and pelvis 01/24/2020. TECHNIQUE: Real-time imaging of the midline epigastric area as indicated by patient. FINDINGS: Limited imaging through the midline epigastric area where patient feels a lump, there is a fat-containing soft tissue density with a small defect in the anterior wall, likely a small epigastric hernia defect measures 3 mm wide. There is 2 small adjacent benign lymph nodes measuring 0.50 0.34 x 0.70 cm and 0.87 0.36 x 0.71 cm. US/US abdomen limited IMPRESSION: Small epigastric fat-containing hernia with a 3 mm wide neck. There are 2 adjacent benign lymph nodes.
[2020-02-06 07:10] LABS: MANUAL DIFF FLAG NO
[2020-02-06 07:20] LABS: Basophils Percent Auto 0.6 % (0-2); Eosinophils Absolute Auto 0.1 X10*3/uL (0.0-0.4); Eosinophils Percent Auto 1.9 % (0-4); Hematocrit 36.5 % (37-47); Hemoglobin 12.4 g/dl (12.0-16.0); Imm Gran Abs Auto 0.01 X10*3/uL (0.00-0.03); Imm Gran Pct Auto 0.2 % (0.0-0.4); Lymphocytes Absolute Auto 3.4 X10*3/uL (1.2-4.9); Lymphocytes Percent Auto 52.3 % (20-40); Mean Corpuscular Hemoglobin 31.6 pg (27.0-33.0); Mean Corpuscular Volume 92.9 fL (80-98); Mean Platelet Volume 10.1 fL (9.4-12.3); Monocytes Absolute Auto 0.6 X10*3/uL (0.1-1.2); Monocytes Percent Auto 9.3 % (2-11); Neutrophils Absolute Auto 2.3 X10*3/uL (2.0-8.3); Neutrophils Percent Auto 35.7 % (45-73); Platelet Count 235 X10*3/uL (160-400); Red Blood Count 3.93 X10*6/uL (4.20-5.50); Red Cell Distribution Width 11.9 % (11.0-16.0); White Blood Count 6.5 X10*3/uL (4.8-10.8)
[2020-02-06 07:32] LABS: Anion Gap 10 (12-20); Blood Urea Nitrogen 11 mg/dL (9-16); Calcium 8.7 mg/dL (8.4-10.2); Carbon Dioxide 28 mmol/L (22-29); Chloride 105 mmol/L (96-108); Estimated Glomerular Filt Rate > 60; Glucose Fasting 90 mg/dL (60-99); Sodium 139 mmol/L (135-145)
== END 2020-02-06 05:52 | disposition home or self-care (01) ==
LOC: HO.US 05:51
PROVIDERS: Visit Provider Nurse Practitioner Family
DX: R19.09 Other intra-abdominal and pelvic swelling, mass and lump (principal)
CPT/HCPCS: 36415; 76700; 76705; 76882; 80048; 85025

== ENCOUNTER 2020-02-19 13:31 | Emergency (ER) | payer OTHER, SELFPAY ==
[2020-02-19 19:44] VITALS: BP 133/68; PULSE 78; RESP 18; TEMP 37.1; O2SAT 100; BMI 25.5
[2020-02-19 20:04] VITALS: BP 137/91; PULSE 96; RESP 16; TEMP 37.2; O2SAT 97; BMI 25.7
[2020-02-19 21:27] VITALS: BP 142/98; PULSE 84; RESP 18; O2SAT 98
--- NOTE | 2020-02-19 21:36 | CT_ITS ---
EXAMINATION: CT ABDOMEN AND PELVIS WITHOUT CONTRAST CLINICAL INFORMATION: Abdominal pain. COMPARISON: CT scan abdomen pelvis 01/24/2020 TECHNIQUE: Multidetector volumetric imaging was performed from the superior aspect of the liver through the pubic symphysis. Sagittal and coronal reformatted images were obtained on the technologist's workstation. This CT examination was performed using dose optimization techniques as appropriate, variously including the following: *Automated exposure control *Adjustment of mA and/or kV according to patient size (this includes techniques or standardized protocols for targeted exams where dose is matched to indication/reason for exam; i.e. extremities or head) *Use of iterative reconstruction technique DLP: 454 mGy-cm FINDINGS: LUNG BASES: The visualized lung bases are unremarkable. LIVER, GALLBLADDER, AND BILIARY TREE: The liver is normal in size, shape, and attenuation. No focal hepatic lesion or biliary ductal dilatation is present. The gallbladder is unremarkable with no evidence of radiopaque gallstones, gallbladder wall thickening, or obvious pericholecystic inflammatory changes. PANCREAS: Unremarkable. SPLEEN: Unremarkable. ADRENAL GLANDS: Unremarkable. KIDNEYS AND URETERS: The kidneys are normal in size, shape, and attenuation. No hydronephrosis, hydroureter, or calculi seen. No perinephric stranding. BLADDER: Unremarkable. GASTROINTESTINAL TRACT: The small and large bowel are unremarkable. The appendix is not visualized. There is no inflammation of the mesentery. ABDOMINAL WALL: No significant hernia is appreciated. LYMPH NODES: Normal. VASCULAR: Unremarkable. PELVIC VISCERA: Unremarkable. OSSEOUS STRUCTURES: Unremarkable. CT/CT abdomen pelvis wo con IMPRESSION: No significant abnormality.
--- NOTE | 2020-02-19 21:38 | ED_ITS ---
HPI - Abdominal Pain General Chief Complaint: Abdominal Pain Stated Complaint: abdominal pain with hernia Source: patient Mode of arrival: ambulatory Limitations: no limitations History of Present Illness HPI narrative: Patient comes emergency room complaining of abdominal pain. Patient states for 3 weeks she has had abdominal pain worse with movement sitting or standing. Patient states she was seen by her primary care physician, and ultrasound was order, she was told that she has a hernia. Patient states for the last 2 days, the pain has been constant, nonradiating, worse with any movement. Patient states the pain is deep inside in the epigastric area. The ultrasound was done on February 05, it showed small epigastric fat containing hernia with a 3 mm wide neck, 2 adjacent benign lymph nodes. Related Data Home Medications Medication Instructions Recorded Confirmed fluticasone propionate 50 1 spray INTRANASAL BID 01/15/20 01/15/20 mcg/actuation nasal spray,suspension Previous Rx's Medication Instructions Recorded omeprazole 20 mg capsule,delayed 20 mg PO DAILY 30 Days #30 cap 01/15/20 release sumatriptan succinate 25 mg tablet 25 mg PO QID PRN 14 Days #30 tab 01/15/20 acetaminophen 650 mg PO Q6H PRN #20 cap 01/24/20 cyclobenzaprine 10 mg PO TID PRN #20 tab 01/24/20 lidocaine [Lidoderm] 1 patch TOPICAL DAILY #15 ea 01/24/20 ferrous sulfate 325 mg (65 mg 325 mg PO DAILY 60 Days #60 tab 02/06/20 iron) tablet Allergies Allergy/AdvReac Type Severity Reaction Status Date / Time prednisone [PREDNISONE] Allergy Unknown SWELLING Unverified 11/09/19 17:14 ketorolac Allergy Swelling Verified 01/15/20 13:56 Review of Systems Review of Systems Constitutional : No Weight loss, No Fever, No Chills, No Night Sweats, No Fatigue, No Malaise ENT/Mouth : No Hearing loss, No Ear Pain, No Nasal Congestion, No Sinus Pain, No Hoarseness, No sore throat, No Rhinorrhea, No Swallowing Difficulty Eyes: No Eye Pain, No Swelling, No Redness, No Foreign Body, No Discharge, No Vision Changes Cardiovascular : No Chest Pain, No SOB, No Dyspnea on Exertion, No Orthopnea, No Edema, No Palpitations Respiratory : No Cough, No Sputum, No Wheezing, No Smoke Exposure, No Dyspnea Gastrointestinal : No Nausea, No Vomiting, No Diarrhea, No Constipation, complaining of deep epigastric pain with movement, No Hematochezia, No Melena Genitourinary : no irregular bleeding, No Dysuria, No Urinary Frequency, No Hematuria, No Urinary Incontinence, No Urgency, No Flank Pain, No Urinary Flow Changes, No Hesitancy Musculoskeletal : No joint pain, No Myalgias, No Joint Swelling Skin : No Skin Lesions, No rash Neuro : No Weakness, No Numbness, No Paresthesias, No Loss of Consciousness, No Dizziness, No Headache Psych : No Anxiety/Panic, No Depression, No SI/HI/AH/VH, No Social Issues, Heme/Lymph: No Bruising, No Bleeding,No Lymphadenopathy Endocrine : No Polyuria, No Polydipsia, No Temperature Intolerance Physical Exam Vital Signs: Vital Signs: Last Vital Signs Temp 99.0 F 02/19/20 20:04 Pulse 84 02/19/20 21:27 Resp 16 02/19/20 23:07 BP 142/98 H 02/19/20 21:27 Pulse Ox 98 02/19/20 21:27 Body Mass Index 25.7 Appearance: Alert. Oriented X3. No acute distress. Eyes: Pupils equal, round and reactive to light. ENT: Pharynx normal. Neck: Normal inspection. Neck supple. No lymph nodes noted. No crepitus CVS: Normal heart rate and rhythm. Pulses normal. Normal S1 and S2 Respiratory: No respiratory distress. Breath sounds normal. No Wheezing. No rales Abdomen: Soft and nontender, mild epigastric pain on deep palpation. No rigidity. No distention. good BS x4 Skin: Skin warm and dry. Normal skin color. Normal skin turgor. Extremities: No lower extremity edema. No lower extremity edema. No Lacerations. No Rash Neuro: Oriented X 3. No motor deficit. No sensory deficit. Moving all extermities. No slurred speech. Course Course Course Narrative: Patient feeling better now that she is reassured, no acute findings on labs or CT scan. As mentioned above, ultrasound done on February 05 showed a 3 mm hernia. MDM - Abdominal Pain Lab Data Result diagrams: 02/19/20 21:49 02/19/20 21:49 Labs: Lab Results 02/19/20 02/19/20 02/19/20 Range/Units 21:45 21:49 21:49 WBC 7.1 (4.8-10.8) X10*3/uL RBC 3.75 L (4.20-5.50) X10*6/uL Hgb 12.0 (12.0-16.0) g/dl Hct 34.3 L (37-47) % MCV 91.5 (80-98) fL MCH 32.0 (27.0-33.0) pg MCHC 35.0 (31.0-35.0) g/dl RDW 12.0 (11.0-16.0) % Plt Count 184 (160-400) X10*3/uL MPV 10.4 (9.4-12.3) fL Immature Gran % (Auto) 0.1 (0.0-0.4) % Neut % (Auto) 37.9 L (45-73) % Lymph % (Auto) 52.0 H (20-40) % [place] % (Auto) 8.6 (2-11) % Eos % (Auto) 1.0 (0-4) % Baso % (Auto) 0.4 (0-2) % Lymph # (Auto) 3.7 (1.2-4.9) X10*3/uL [place] # (Auto) 0.6 (0.1-1.2) X10*3/uL Eos # (Auto) 0.1 (0.0-0.4) X10*3/uL Baso # (Auto) 0.0 (0.0-0.2) X10*3/uL Abs Immat Gran (auto) 0.01 (0.00-0.03) X10*3/uL Absolute Neuts (auto) 2.7 (2.0-8.3) X10*3/uL Absolute Nucleated RBC 0.000 (0.0-0.012) X10*3/uL Nucleated RBC % (auto) 0.0 (0.0-0.2) /100WBC Sodium 140 (135-145) mmol/L Potassium 3.7 (3.3-5.1) mmol/l Chloride 107 (96-108) mmol/L Carbon Dioxide 25 (22-29) mmol/L Anion Gap 12 (12-20) BUN 6 L (9-16) mg/dL Creatinine 0.71 (0.5-1.4) mg/dL Estim Creat Clear Calc 103.8 Estimated GFR > 60 Random Glucose 82 (60-115) mg/dL Calcium 8.8 (8.4-10.2) mg/dL Total Bilirubin 0.5 (0.0-1.0) mg/dL Direct Bilirubin 0.2 (0.0-0.5) mg/dL AST 11 (5-31) U/L ALT 10 (0-31) U/L Alkaline Phosphatase 40 (39-117) U/L Total Protein 6.3 L (6.5-8.0) g/dL Albumin 4.4 (3.5-5.0) g/dL Lipase 15 (8-78) U/L Urine Color STRAW Urine Appearance CLEAR Urine pH 6.0 (5.0-8.0) Ur Specific [place] 1.010 (1.005-1.025) Urine Protein NEG (NEG-TRACE) MG/DL Urine Glucose (UA) NEG (NEG) MG/DL Urine Ketones NEG (NEG) MG/DL Urine Blood TRACE (NEG) Urine Nitrite NEG (NEG) Ur Leukocyte Esterase NEG (NEG) Urine RBC 0-2 (0) /HPF Urine WBC 0 (0-4) /HPF Ur Squamous Epith Cells TRACE /LPF Urine Bacteria NONE /LPF Urine Mucus TRACE /LPF Urine Test NEGATIVE (NEGATIVE) Imaging Data CT scan - abdomen: Radiologist's impression: FINDINGS: LUNG BASES: The visualized lung bases are unremarkable. LIVER, GALLBLADDER, AND BILIARY TREE: The liver is normal in size, shape, and attenuation. No focal hepatic lesion or biliary ductal dilatation is present. The gallbladder is unremarkable with no evidence of radiopaque gallstones, gallbladder wall thickening, or obvious pericholecystic inflammatory changes. PANCREAS: Unremarkable. SPLEEN: Unremarkable. ADRENAL GLANDS: Unremarkable. KIDNEYS AND URETERS: The kidneys are normal in size, shape, and attenuation. No hydronephrosis, hydroureter, or calculi seen. No perinephric stranding. BLADDER: Unremarkable. GASTROINTESTINAL TRACT: The small and large bowel are unremarkable. The appendix is not visualized. There is no inflammation of the mesentery. ABDOMINAL WALL: No significant hernia is appreciated. LYMPH NODES: Normal. VASCULAR: Unremarkable. PELVIC VISCERA: Unremarkable. OSSEOUS STRUCTURES: Unremarkable. CT/CT abdomen pelvis wo con IMPRESSION: No significant abnormality. Discharge Plan Discharge Clinical Impression: Abdominal pain Patient Disposition: Home, Self-Care Instructions: Abdominal Pain (ED), Ventral Hernia (ED) Additional Instructions: Please follow-up with your primary care physician tomorrow. If you have any worsening or new symptoms, please return to the emergency room or call 911 Prescriptions: No Action ferrous sulfate 325 mg (65 mg iron) tablet 325 mg PO DAILY 60 Days Qty: 60 RF: 0 cyclobenzaprine 10 mg tablet 10 mg PO TID PRN (Reason: muscle spasm) Qty: 20 RF: 0 lidocaine [Lidoderm] 5 % adhesive patch,medicated 1 patch topical DAILY Qty: 15 RF: 0 acetaminophen 325 mg capsule 650 mg PO Q6H PRN (Reason: pain) Qty: 20 RF: 0 fluticasone propionate 50 mcg/actuation spray,suspension 1 spray intranasal BID RF: 0 omeprazole 20 mg capsule,delayed release(DR/EC) 20 mg PO DAILY 30 Days Qty: 30 RF: 0 sumatriptan succinate 25 mg tablet 25 mg PO QID PRN (Reason: migraine headache) 14 Days Qty: 30 RF: 0 Stand Alone Forms: Work/School Release Interventions: LWBS Worksheet Last Done: 02/19/20 18:57 Discharge Date/Time: 02/19/20 18:57 [facility] Past Medical History Medical History Epigastric hernia Lump in the abdomen Migraine Family History Family History Mother Fibromyalgia Father Lyme disease Social History Social History Alcohol intake: never Smoking Status: Former smoker Smoked in Last 30 Days: No Use of substances other than those prescribed or required for medical reasons: No Advance Directives: No Advance Directives Information Provided: Yes
[2020-02-19 21:55] LABS: Basophils Percent Auto 0.4 % (0-2); Eosinophils Absolute Auto 0.1 X10*3/uL (0.0-0.4); Hematocrit 34.3 % (37-47); Imm Gran Abs Auto 0.01 X10*3/uL (0.00-0.03); Imm Gran Pct Auto 0.1 % (0.0-0.4); Lymphocytes Absolute Auto 3.7 X10*3/uL (1.2-4.9); MANUAL DIFF FLAG NO; Mean Corpuscular Volume 91.5 fL (80-98); Mean Platelet Volume 10.4 fL (9.4-12.3); Monocytes Absolute Auto 0.6 X10*3/uL (0.1-1.2); Monocytes Percent Auto 8.6 % (2-11); Neutrophils Absolute Auto 2.7 X10*3/uL (2.0-8.3); Neutrophils Percent Auto 37.9 % (45-73); Platelet Count 184 X10*3/uL (160-400); Red Blood Count 3.75 X10*6/uL (4.20-5.50); White Blood Count 7.1 X10*3/uL (4.8-10.8)
--- NOTE | 2020-02-19 21:56 | PC.NURSE ---
pt computer not working vitals at this time 126/86, hr 70 sat 99 room air. rr reg and even no s/s of distress, needs at bedside, call brice.
[2020-02-19 21:57] LABS: Glucose Urine UA NEG (NEG); Leukocyte Esterase Urine NEG (NEG); Nitrite Urine NEG (NEG); Urine Blood TRACE (NEG); Urine Ketones NEG (NEG); Urine Protein NEG (NEG-TRACE)
[2020-02-19 22:04] LABS: Appearance Urine CLEAR; Color Urine STRAW
[2020-02-19 22:15] LABS: Mucus Urine TRACE /LPF; RBC Urine 0-2 /HPF (0); Squamous Epithelial Cell Urine TRACE /LPF; WBC Urine 0 /HPF (0-4)
[2020-02-19 22:16] LABS: UPreg QC Valid YES; Urine Pregnancy NEGATIVE (NEGATIVE)
[2020-02-19 22:21] LABS: Alanine Aminotransferase 10 U/L (0-31); Albumin Level 4.4 g/dL (3.5-5.0); Alkaline Phosphatase 40 U/L (39-117); Anion Gap 12 (12-20); Aspartate Amino Transferase 11 U/L (5-31); Bilirubin Direct 0.2 mg/dL (0.0-0.5); Bilirubin Total 0.5 mg/dL (0.0-1.0); Blood Urea Nitrogen 6 mg/dL (9-16); Calcium 8.8 mg/dL (8.4-10.2); Carbon Dioxide 25 mmol/L (22-29); Chloride 107 mmol/L (96-108); Creatinine Clr Calc Pharmacy 103.8; Estimated Glomerular Filt Rate > 60; Glucose Random 82 mg/dL (60-115); Lipase 15 U/L (8-78); Potassium 3.7 mmol/l (3.3-5.1); Sodium 140 mmol/L (135-145); Total Protein 6.3 g/dL (6.5-8.0)
[2020-02-19 23:07] VITALS: RESP 16
[2020-02-19] MEDS: Morphine Sulfate 4 MG/ML CARTRIDGE 2 MG IVPUSH (23:07)
[2020-02-19] MEDS: ondansetron HCL 4 MG/2 ML VIAL IVPUSH (23:07)
--- NOTE | 2020-02-19 23:12 | PC.NURSE ---
pt given morphine and zofran iv. for 8/10 mid upper abd pain. 114/73
--- NOTE | 2020-02-19 23:13 | PC.NURSE ---
hr 61 sat 97% room air, bp 114/73
--- NOTE | 2020-02-19 23:49 | PC.NURSE ---
pt vitals at 2312 114/73 70 98% on room air. rr 18 even and reg. 2350 120/68 72 rr 18 even and reg. sat 98% on home.
--- NOTE | 2020-02-20 00:17 | PC.NURSE ---
REVIEWED PT MEDICATIONS RECIEVED WITH STOCK RECEIVERYAKELIN CESAR AND PT IS SAFE TO GO HOME.
== END 2020-02-20 00:04 | disposition home or self-care (01) ==
PROVIDERS: Emergency Provider Emergency Medicine; PCP Nurse Practitioner Family
DX: R10.9 Unspecified abdominal pain (principal); K43.9 Ventral hernia without obstruction or gangrene
CPT/HCPCS: 36415; 74176; 80048; 80076; 81001; 81003; 81025; 83690; 85025; 96374; 96375; 99284; 99285; J2270; J2405

== ENCOUNTER → 2020-04-24 10:17 | Outpatient (BNVA) | payer OTHER, SELFPAY | PROVIDERS: PCP Physician Assistant; Visit Provider Surgery ==

== ENCOUNTER 2020-05-30 06:08 | Day surgery (SDC) | payer OTHER, SELFPAY ==
[2020-05-24 09:45] VITALS: BMI 24.9
--- NOTE | 2020-05-29 11:40 | HO.ANESPROP2 ---
Documented by User: Rebecca Adrian 05/29/20 11:41 HPI - Anesthesia Eval Consult details Narrative: 34yo F for Hernia Repair Epigastric with Mesh PMFSH Active Problems Active Problems: All Active Problems (Updated 02/26/20 @ 20:11 by Renetta Davis NP) Abdominal hernia (Acute) Epigastric hernia (Acute) Migraine (Acute) Lump in the abdomen (Acute) Past Medical History Medical History Abdominal hernia Epigastric hernia Lump in the abdomen Migraine Family History Family History Mother Fibromyalgia Father Lyme disease Paternal Grandmother History of bladder cancer, Onset Age: 30 History of ovarian cancer Maternal Aunt History of kidney cancer Surgical History Surgical History History of ovarian cystectomy History of tonsillectomy and adenoidectomy Social History Social History Are you a primary professional healthcare representative to a significant other at home: No Do you presently have visiting nurse or other home services: No Alcohol intake: never Smoking Status: Former smoker Have you been hit, kicked, punched, or otherwise hurt by someone within the past year? If so, by whom?: No Advance Directives: No Advance Directives Information Provided: No Advance Directives on File: No Recently lost weight without trying: No Meds Allergies Allergy/AdvReac Type Severity Reaction Status Date / Time prednisone [PREDNISONE] Allergy Unknown SWELLING Verified 05/30/20 06:44 ketorolac Allergy Swelling Verified 05/30/20 06:44 Home Medications Medication Instructions Recorded Confirmed Last Taken Type fluticasone propionate 50 1 spray INTRANASAL BID 01/15/20 05/24/20 Unknown History mcg/actuation nasal spray,suspension Exam Exam Date and Time: May 29, 2020 1140 Height,Weight and Vital Signs: Height 5 ft 4 in Weight 65.771 kg Narrative Narrative: EKG 01/2020 Vent. Rate : 055 BPM Atrial Rate : 055 BPM P-R Int : 114 ms QRS Dur : 076 ms QT Int : 404 ms P-R-T Axes : 046 060 053 degrees QTc Int : 386 ms Sinus bradycardia with Premature atrial complexes Otherwise normal ECG When compared to the previous EKG of No significant changes seen Assessment and Plan Assessment Anesthesia Assessment: Chart Reviewed Documented by User: Atiya Adame 05/30/20 07:51 PMFSH Past Medical History Medical History Abdominal hernia Epigastric hernia Lump in the abdomen Migraine Family History Family History Mother Fibromyalgia Father Lyme disease Paternal Grandmother History of bladder cancer, Onset Age: 30 History of ovarian cancer Maternal Aunt History of kidney cancer Surgical History Surgical History History of ovarian cystectomy History of tonsillectomy and adenoidectomy Social History Social History Are you a primary professional healthcare representative to a significant other at home: No Do you presently have visiting nurse or other home services: No Alcohol intake: never Smoking Status: Former smoker Have you been hit, kicked, punched, or otherwise hurt by someone within the past year? If so, by whom?: No Advance Directives: No Advance Directives Information Provided: No Advance Directives on File: No Recently lost weight without trying: No Meds Allergies Allergy/AdvReac Type Severity Reaction Status Date / Time prednisone [PREDNISONE] Allergy Unknown SWELLING Verified 05/30/20 06:44 ketorolac Allergy Swelling Verified 05/30/20 06:44 Home Medications Medication Instructions Recorded Confirmed Last Taken Type fluticasone propionate 50 1 spray INTRANASAL BID 01/15/20 05/24/20 Unknown History mcg/actuation nasal spray,suspension Exam Airway Mallampati Class: II TM Dist: >3cm Neck ROM: Full Loose/Missing/Broken Teeth: No Heart: RRR Lungs: CTA Assessment and Plan Assessment Anesthesia Assessment: Anesthesia Plan Discussed and Chart Reviewed Final Anesthetic Review NPO: Yes ASA Class: II Final Preanesthetic Review: Meds/Allgs Chart Reviewed, Consent Obtained/Reviewed and Anes Risks/Benef Reviewed Patient Risk: Low Procedure Risk: Low Anesthetic Plan Anesthetic Plan: GA Disposition: Standard PACU
[2020-05-30] VITALS (7 sets, daily range): BP systolic 108–118; BP diastolic 40–72; PULSE 55–74; RESP 16–18; TEMP 36.2–37.2; O2SAT 97–100
[2020-05-30 06:49] LABS: UPreg QC Valid YES; Urine Pregnancy NEGATIVE (NEGATIVE)
[2020-05-30] MEDS: Lactated Ringers 1,000 ML 100 ML IVCONT (06:59)
--- NOTE | 2020-05-30 07:36 | MHC.SHP ---
Pre-Procedural Eval Section A The patient is an INPATIENT: No Changes since office visit: Yes Patient answered all questions; No Cold of Flu in the past 2 weeks, No New Medical Problems and No Changes in Medication The History & Physical has been completed within 30 days and I have reviewed it.: Yes Section B Chief Complaint: Epigastric hernia Allergies: Allergies Allergy/AdvReac Type Severity Reaction Status Date / Time prednisone [PREDNISONE] Allergy Unknown SWELLING Verified 05/30/20 06:44 ketorolac Allergy Swelling Verified 05/30/20 06:44 Plan Diagnosis/Plan: Unchanged I have reviewed the history and physical and performed a pertinent physical examination on my patient. No changes have occurred unless specified.
--- NOTE | 2020-05-30 08:09 | W.PM.OPN ---
Operative Note Operative Note Date of Service: 05/30/20 Narrative: Preoperative diagnosis: Epigastric hernia Postoperative diagnosis: Same Procedure: Repair of epigastric hernia without hernia mesh Surgeon: Miguel Sierra MD [employer] Specialist: None Anesthesia: General LMA Indications for procedure: 34-year-old female patient presenting with a lump in the upper abdomen which is non reducible and increases in size with Valsalva. Findings are suggestive of an epigastric hernia. Operative findings: Epigastric hernia with a fascial defect measuring approximately 3 mm in diameter. Specimen: None Estimated blood loss: 3 mL Complications: None Procedure details: Patient was brought to the OR placed in a supine position. After administering general anesthesia the patient's abdomen was prepped with ChloraPrep and draped in a sterile fashion. A surgical time-out was called the consent confirmed. Patient received preoperative antibiotics and Venodyne boots were in place. Local anesthesia consisting of 0.5% Sensorcaine with epinephrine was infiltrated in the midline directly over the midline hernia. A 3 cm incision was made in the midline and carried out through subcutaneous tissue and up to the hernia defect. The hernia defect was then dissected down to the fascia. Preperitoneal fat was found to be herniating through this defect. This was freed down to the preperitoneal space. The preperitoneal fat was then returned to the abdominal cavity. A defect measuring between 2-3 mm was identified. This was much too small to insert a mesh therefore a primary closure was performed. The fascial defect was closed using a [id number] 0 Tycron suture x2. The wounds were then irrigated with saline and suctioned dry. Additional local was infiltrated in the subcutaneous tissue. Deep subcutaneous tissue and dermis were then reapproximated using interrupted 3 0 Polysorb sutures. Skin was closed using a running subcuticular 4 0 Polysorb suture. Steri-Strips 2 x 2 gauze and Tegaderm were then applied. The patient tolerated the procedure well. Sponge, instrument, and needle counts reported as correct. The patient was transferred to PACU in stable condition.
[2020-05-30] MEDS: Acetaminophen 325 MG TABLET 650 MG PO (08:41)
[2020-05-30] MEDS: oxyCODONE HCl Immed Release 5 MG TABLET PO (08:42)
== END 2020-05-30 10:00 | disposition home or self-care (01) ==
PROVIDERS: Nurse Practitioner; PCP Physician Assistant; Visit Provider Surgery
PROC: (CPT 49560; principal; 2020-05-30 07:30)
DX: K43.9 Ventral hernia without obstruction or gangrene (principal)
CPT/HCPCS: 49560; 81025; J0690; J1100; J2250; J2405; J2550; J3010

== ENCOUNTER → 2020-06-12 15:08 | Outpatient (BNVA) | payer OTHER, SELFPAY | PROVIDERS: PCP Physician Assistant; Visit Provider Surgery ==

== ENCOUNTER 2020-09-24 09:32 | Outpatient (REF) | payer OTHER, SELFPAY ==
--- NOTE | ~2020-09-24 | XR_ITS ---
EXAMINATION: XR WRIST, LEFT CLINICAL INFORMATION: Pain status-post injury. COMPARISON: None TECHNIQUE: PA, lateral, and oblique views of the left wrist, together with a dedicated navicular view. FINDINGS: The bones and soft tissues are normal. No fracture. Alignment is anatomic with normal joint spaces. There is a neutral ulnar variance. No erosions or abnormal soft tissue calcifications. XR/XR wrist LT w scaphoid IMPRESSION: Normal left wrist.
== END 2020-09-24 09:33 | disposition home or self-care (01) ==
LOC: HO.XRAY 09:32
PROVIDERS: PCP Physician Assistant; Visit Provider Physician Assistant
DX: S69.92XA Unspecified injury of left wrist, hand and finger(s), initial encounter (principal)
CPT/HCPCS: 73110

== ENCOUNTER → 2020-10-15 15:48 | Outpatient (BNVA) | payer OTHER, SELFPAY | PROVIDERS: PCP Physician Assistant; Visit Provider Surgery ==

== ENCOUNTER 2020-10-21 07:54 | Outpatient (REF) | payer OTHER, SELFPAY ==
--- NOTE | ~2020-10-21 | CT_ITS ---
EXAMINATION: CT ABDOMEN AND PELVIS WITH CONTRAST CLINICAL INFORMATION: Ventral hernia without obstruction or gangrene. COMPARISON: 02/19/2020 CT abdomen and pelvis TECHNIQUE: Multidetector volumetric images were obtained from the superior aspect of the liver through the pubic symphysis following administration 85 mL of Omnipaque 350 intravenous contrast. Sagittal and coronal reformatted images were obtained on the technologist's workstation. Oral contrast: No This CT examination was performed using dose optimization techniques as appropriate, variously including the following: *Automated exposure control *Adjustment of mA and/or kV according to patient size (this includes techniques or standardized protocols for targeted exams where dose is matched to indication/reason for exam; i.e. extremities or head) *Use of iterative reconstruction technique DLP: 258 mGy-cm FINDINGS: LUNG BASES: The visualized lung bases are unremarkable. LIVER, GALLBLADDER, AND BILIARY TREE: Right lobe spans 18.2 cm craniocaudal. Normal attenuation. No focal hepatic lesion or biliary ductal dilatation is present. The gallbladder is unremarkable with no evidence of radiopaque gallstones, gallbladder wall thickening, or obvious pericholecystic inflammatory changes. PANCREAS: Unremarkable. SPLEEN: Unremarkable. ADRENAL GLANDS: Unremarkable. KIDNEYS AND URETERS: The kidneys are normal in size, shape, and attenuation. No hydronephrosis, hydroureter, or calculi seen. No perinephric stranding. BLADDER: Unremarkable. GASTROINTESTINAL TRACT: Paucity of intra-abdominal fat limiting evaluation. The small and large bowel are unremarkable. No dilated bowel loops seen. The appendix is nonvisualized. No mesenteric inflammatory changes are seen. No free fluid. ABDOMINAL WALL: No significant hernia is appreciated. LYMPH NODES: No enlarged lymph nodes are visualized. VASCULAR: Normal caliber aorta. Portal vein is enhancing. PELVIC VISCERA: Within normal limits. Anteverted uterus. OSSEOUS STRUCTURES: No acute or suspicious osseous abnormality. CT/CT abdomen pelvis w con IMPRESSION: No acute intra-abdominal process is identified. Right lobe of the liver spans 18.2 cm. No focal liver lesions or biliary duct dilatation.
[2020-10-21] MEDS: iohexoL 350 MG/ML 100 ML INFUS..BTL IV (08:59)
== END 2020-10-21 07:55 | disposition home or self-care (01) ==
LOC: HO.CT 07:54
PROVIDERS: PCP Physician Assistant; Visit Provider Surgery
DX: K43.9 Ventral hernia without obstruction or gangrene (principal); R63.0 Anorexia; S39.011A Strain of muscle, fascia and tendon of abdomen, initial encounter
CPT/HCPCS: 74177; Q9967

== ENCOUNTER 2021-03-03 09:11 | Outpatient (REF) | payer OTHER, SELFPAY ==
[2021-03-03 09:33] LABS: Binax Internal Control QC Valid; Binax Now Covid-19 Ag Negative (Negative)
== END 2021-03-03 09:12 | disposition home or self-care (01) ==
LOC: HO.HMGCLDS 09:11
PROVIDERS: Visit Provider Internal Medicine
DX: Z20.822 Contact with and (suspected) exposure to COVID-19 (principal); J06.9 Acute upper respiratory infection, unspecified
CPT/HCPCS: 36415

== ENCOUNTER 2021-04-30 09:21 | Outpatient (REF) | payer OTHER, SELFPAY ==
[2021-04-30 10:12] LABS: Hematocrit 39.1 % (37.0-47.0); Hemoglobin 12.7 g/dl (12.0-16.0); Mean Corpuscular HGB Conc 32.5 g/dl (31.0-35.0); Mean Corpuscular Hemoglobin 30.8 pg (27.0-33.0); Mean Corpuscular Volume 94.7 fL (80.0-98.0); Mean Platelet Volume 10.1 fL (9.4-12.3); Platelet Count 249 X10*3/uL (160-400); Red Blood Count 4.13 X10*6/uL (4.20-5.50); Red Cell Distribution Width 12.5 % (11.0-16.0); White Blood Count 4.7 X10*3/uL (4.8-10.8)
[2021-04-30 10:48] LABS: Alanine Aminotransferase 17 U/L (0-31); Albumin Level 4.4 g/dL (3.5-5.0); Alkaline Phosphatase 49 U/L (39-117); Anion Gap 12 (12-20); Aspartate Amino Transferase 15 U/L (5-31); Bilirubin Total 0.4 mg/dL (0.0-1.0); Blood Urea Nitrogen 14 mg/dL (9-16); Calcium 9.6 mg/dL (8.4-10.2); Carbon Dioxide 27 mmol/L (22-29); Chloride 106 mmol/L (96-108); Cholesterol 221 mg/dL; Estimated Glomerular Filt Rate > 60; Glucose Fasting 98 mg/dL (60-99); HDL Cholesterol 61 mg/dL; LDL Cholesterol Calculated 153 mg/dl; Potassium 4.5 mmol/L (3.3-5.1); Sodium 140 mmol/L (135-145); Total Protein 6.7 g/dL (6.5-8.0); Triglycerides 37 mg/dL
[2021-04-30 11:11] LABS: TSH reflex Free T4 0.81 uIU/mL (0.32-4.0)
== END 2021-04-30 09:22 | disposition home or self-care (01) ==
LOC: HO.LAB 09:21
PROVIDERS: PCP Physician Assistant; Visit Provider Physician Assistant
DX: I10 Essential (primary) hypertension (principal); Z13.1 Encounter for screening for diabetes mellitus; Z13.220 Encounter for screening for lipoid disorders; Z13.29 Encounter for screening for other suspected endocrine disorder
CPT/HCPCS: 36415; 80053; 80061; 84443; 85027

== ENCOUNTER 2021-12-24 12:56 | Outpatient (REF) | payer OTHER, SELFPAY ==
[2021-12-25 12:25] LABS: Influenza A PCR NEGATIVE (Negative); Influenza B PCR NEGATIVE (Negative); Resp Syncy Virus RNA Qual PCR NEGATIVE (Negative); SARS COV2 PCR INHOUSE NEGATIVE (Negative)
== END 2021-12-24 12:57 | disposition home or self-care (01) ==
LOC: HO.LAB 12:56
PROVIDERS: Visit Provider Family Medicine
DX: Z20.822 Contact with and (suspected) exposure to COVID-19 (principal); B34.9 Viral infection, unspecified
CPT/HCPCS: 0241U

== ENCOUNTER 2022-01-07 09:00 | Outpatient (REF) | payer OTHER, SELFPAY ==
--- NOTE | ~2022-01-07 | US_ITS ---
EXAMINATION: US ABDOMEN LIMITED CLINICAL INFORMATION: Ventral hernia without obstruction or gangrene. COMPARISON: CT abdomen and pelvis 10/21/2020. TECHNIQUE: Real-time imaging of the region of concern in the midline. FINDINGS: There are multiple small hernias seen along the midline, measuring 0.9 x 0.3 x 0.8 cm with a neck measuring 0.2 cm, 0.9 x 0.3 x 1.0 cm with the neck measured 0.3 cm, 0.7 x 0.3 x 0.8 cm with the neck measured 0.2 cm and 0.8 x 0.3 x 1.5 cm within it measured 0.3 cm. US/US abdomen limited IMPRESSION: Multiple small mid abdominal hernias as described
== END 2022-01-07 09:01 | disposition home or self-care (01) ==
LOC: HO.HMGCX 09:00
PROVIDERS: PCP Physician Assistant; Visit Provider Surgery
DX: K43.9 Ventral hernia without obstruction or gangrene (principal)
CPT/HCPCS: 76705

== ENCOUNTER 2023-04-07 08:15 | Outpatient (AMB) | payer OTHER, SELFPAY ==
--- NOTE | 2023-04-07 08:32 | A.OFFPC_ITS ---
Vital Signs 04/07/23 08:33 04/07/23 08:33 Height 5 ft 4 in 5 ft 4 in Weight 149 lb BMI 25.6 BP 124/80 Blood Pressure Location Lt brachial Lt brachial Position Sitting Sitting Pulse Source Pulse Oximeter Oxygen Delivery Method Room Air Intake Visit Reasons: Medication Follow Up Intake Note: Patient here for medication follow up Automatic Pattern Edger Required: No Accompanied by: Self / Same As Patient Allergies prednisone [PREDNISONE] Allergy (Unknown, Verified 04/07/23 08:41) SWELLING ketorolac Allergy (Verified 04/07/23 08:41) Swelling Medication List - Last Reconciled 04/07/23 by Yo Clemente PA-C bupropion HCl (Wellbutrin SR) 150 mg PO DAILY cyclobenzaprine 10 mg PO TID PRN fluticasone propionate 50 mcg/actuation 1 spray intranasal BID hydroxyzine HCl 25 mg PO BEDTIME PRN 30 days lorazepam 0.5 mg PO BID PRN 5 days ondansetron HCl 4 mg PO Q8H PRN 7 days Tobacco use date assessed: 04/07/23 Dental Screening Dental Screen Date: 04/07/23 Did you have a dental visit in the last 12 months?: No Did you have a dental problem in the last 6 months where you did not have access to dental care?: No Was dental information given to patient?: Patient has dentist [facility] Medical History Abdominal hernia Epigastric hernia Migraine Lump in the abdomen Surgical History History of surgery History of hernia surgery History of ovarian cystectomy History of tonsillectomy and adenoidectomy Family History Mother Fibromyalgia Father Lyme disease Paternal Grandmother History of bladder cancer, Onset Age: 30 History of ovarian cancer Maternal Aunt History of kidney cancer Brother Mental problem Substance abuse Social History Housing: Apartment Are you a primary primary care provider to a significant other at home: No Do you presently have visiting nurse or other home services: No Alcohol intake: former Patient Tobacco Use Status: Former Tobacco user e-Cigarette/Vaping Use: Never Used Second Hand Smoke Exposure: Yes service: No Current occupational status: employed Current occupation: [employer] Cognitive needs: No Hearing needs: No Vision needs: No Questionnaire PHQ-9 Over the last 2 weeks, how often have you been bothered by any of the following problems? 1. Little interest or pleasure in doing things: more than half the days 2. Feeling down, depressed, or hopeless: more than half the days 3. Trouble falling or staying asleep, or sleeping too much: more than half the days 4. Feeling tired or having little energy: nearly every day 5. Poor appetite or overeating: nearly every day 6. Feeling bad about yourself - or that you are a failure or have let yourself or your family down: more than half the days 7. Trouble concentrating on things, such as reading the newspaper or watching television: nearly every day 8. Moving or speaking so slowly that other people could have noticed. Or the opposite - being so fidgety or restless that you have been moving around a lot more than usual: nearly every day 9. Thoughts that you would be better off or of hurting yourself in some way: not at all Total score: 20 Source: Developed by Drs. Bradley Yuan, Marcela Lozada, Reji Trinidad and colleagues, with an educational samina from [employer]. Thrive Questionnaire Date Thrive assessed: 04/07/23 I am a: Patient What is your living situation today?: I have a steady place to live Within the past 12 months, did the food you bought not last and you didn't have the money to get more?: Never true Within the past 12 months, did you worry whether your food would run out before you got money to buy more?: Never true Do you have trouble paying for medicines?: No Do you have trouble getting transportation to medical appointments?: No Do you have trouble paying your heating and electricity bill?: No Do you have trouble taking care of your child, family member or friend?: No Do you have trouble with day-to-day activities such as bathing, preparing meals, shopping, managing finances, etc.?: No Are you currently unemployed and looking for a job?: No Are you interested in more education?: No Please select the resources that you would like help with: None Currently or been in a relationship where the following occur: no concerns reported THRIVE Score: 0 AUDIT C Alcohol Use Questionnaire (AUDIT-C) 1. How often do you have a drink containing alcohol?: Monthly or less 2. How many drinks containing alcohol do you have on a typical day when you are drinking?: 1 or 2 3. How often do you have six or more drinks on one occasion?: Never Total Score: 1 CHANG-7 AMB Questionnaire CHANG-7 Date CHANG - 7 assessed: 04/07/23 Feeling nervous, anxious, or on edge: 3 = Nearly every day Not being able to stop or control worryin = Nearly every day Worrying too much about different things: 3 = Nearly every day Trouble relaxin = Nearly every day Being so restless that it is hard to sit still: 3 = Nearly every day Becoming easily annoyed or irritable: 3 = Nearly every day Feeling afraid as if something awful might happen: 2 = More than half the days Total CHANG-7 score (0-4 normal; 5-9 mild; 10-14 moderate; 15-21 severe): 20 Source: Developed by Drs. Bradley Yuan, Marcela Lozada, Reji Trinidad and colleagues, with an educational samina from [employer]. Physical exam (Primary Care) Vital Signs: Last Vital Signs BP 124/80 04/07/23 08:33 Oxygen Delivery Method Room Air 04/07/23 08:33 BMI result Body Mass Index 25.6 Tobacco/Smoking Status: Tobacco use Status Tobacco use date assessed 04/07/23 04/07/23 08:40 Patient Tobacco Use Status Former Tobacco user 04/07/23 08:40 e-Cigarette/Vaping Use Never Used 04/07/23 08:40 PHQ-9: PHQ-9 Score PHQ-9: Total score 24 04/07/23 09:11 Thrive Assessment: Date of Thrive Assessment Date Thrive assessed 04/07/23 04/07/23 08:40 Currently or been in a relationship where the following occur: no concerns reported Assessment and Plan Assessment & Plan (1) GERD (gastroesophageal reflux disease): Code(s): K21.9 - Gastro-esophageal reflux disease without esophagitis Orders: Orders Comprehensive [place]. Panel Fast Today Z13.1 - Encounter for screening for diabetes mellitus [place] upper GI w Ba Swallow Today K21.9 - Gastro-esophageal reflux disease without esophagitis, K43.9 - Ventral hernia without obstruction or gangrene, R13.10 - Dysphagia, unspecified Referrals General Surgery Referral K43.9 - Ventral hernia without obstruction or gangrene Medications: New methylphenidate HCl ER (Concerta) Partial Fill upon patient request. 36 mg PO DAILY 28 tabs 0RF 28 days F98.8 - Other specified behavioral and emotional disorders with onset usually occurring in childhood and adolescence Coding Diagnoses GERD (gastroesophageal reflux disease) K21.9
--- NOTE | 2023-04-07 08:32 | MHC.PC.OV ---
Vital Signs 04/07/23 08:33 04/07/23 08:33 Height 5 ft 4 in 5 ft 4 in Weight 149 lb BMI 25.6 BP 124/80 Blood Pressure Location Lt brachial Lt brachial Position Sitting Sitting Pulse Source Pulse Oximeter Oxygen Delivery Method Room Air Intake Visit Reasons: Medication Follow Up Lease Broker Required: No Supplier Quality Manager: Not Required per policy Accompanied by: Self / Same As Patient Allergies prednisone [PREDNISONE] Allergy (Unknown, Verified 04/07/23 08:41) SWELLING ketorolac Allergy (Verified 04/07/23 08:41) Swelling Medication List - Last Reconciled 04/07/23 by Yo Clemente PA-C bupropion HCl (Wellbutrin SR) 150 mg PO DAILY cyclobenzaprine 10 mg PO TID PRN fluticasone propionate 50 mcg/actuation 1 spray intranasal BID hydroxyzine HCl 25 mg PO BEDTIME PRN 30 days lorazepam 0.5 mg PO BID PRN 5 days ondansetron HCl 4 mg PO Q8H PRN 7 days Tobacco use date assessed: 04/07/23 Dental Screening Dental Screen Date: 04/07/23 Did you have a dental visit in the last 12 months?: Yes Did you have a dental problem in the last 6 months where you did not have access to dental care?: No Was dental information given to patient?: Patient has dentist HPI Medication Follow Up HPI Details Patient is a 37-year-old female here today for follow-up visit.? At last visit we discussed her generalized anxiety disorder and her inattentive disorder.? She continues to complain of work related stress causing her a lot of anxiety.? . Currently on Wellbutrin 150 mg which she feels is somewhat working. Would like to stay on this dose for now. Unfortunately still suffers with increasing anxiety which she relates to her inability to stay on task and racing thoughts. She does have family history of ADD disorder wonder if she does have the same. She is awaiting to establish with a license mental health therapist. She will do her own research and find 1 locally. . Epigastric hernia:? Continues to have upper epigastric pain upon movements of her trunk. She has had epigastric hernia surgery without mesh though feels it was unsuccessful. Also continues to have upper GI discomfort and dyspepsia. She is interested in a 2nd opinion from general surgeon. Will send for barium swallow to evaluate for hiatal hernia ? [facility] Medical History Abdominal hernia Epigastric hernia Migraine Lump in the abdomen Surgical History History of surgery History of hernia surgery History of ovarian cystectomy History of tonsillectomy and adenoidectomy Family History Mother Fibromyalgia Father Lyme disease Paternal Grandmother History of bladder cancer, Onset Age: 30 History of ovarian cancer Maternal Aunt History of kidney cancer Brother Mental problem Substance abuse Social History Housing: Apartment Are you a primary palliative care specialist to a significant other at home: No Do you presently have visiting nurse or other home services: No Alcohol intake: former Patient Tobacco Use Status: Former Tobacco user e-Cigarette/Vaping Use: Never Used Second Hand Smoke Exposure: Yes service: No Current occupational status: employed Current occupation: [employer] Cognitive needs: No Hearing needs: No Vision needs: No Questionnaire PHQ-9 Over the last 2 weeks, how often have you been bothered by any of the following problems? 1. Little interest or pleasure in doing things: nearly every day 2. Feeling down, depressed, or hopeless: nearly every day 3. Trouble falling or staying asleep, or sleeping too much: nearly every day 4. Feeling tired or having little energy: nearly every day 5. Poor appetite or overeating: nearly every day 6. Feeling bad about yourself - or that you are a failure or have let yourself or your family down: nearly every day 7. Trouble concentrating on things, such as reading the newspaper or watching television: nearly every day 8. Moving or speaking so slowly that other people could have noticed. Or the opposite - being so fidgety or restless that you have been moving around a lot more than usual: nearly every day 9. Thoughts that you would be better off or of hurting yourself in some way: not at all Total score: 24 Depression Screening Interpretation: Positive Depression Screening Follow-up: Existing condition and Community Mental Health Worker F/U Depression Screening Done: Yes 22653 - PHQ-9 Billing: Yes Source: Developed by Drs. Bradley Yuan, Reji Dickey and colleagues, with an educational samina from [employer]. Thrive Questionnaire Date Thrive assessed: 03/25/22 I am a: Patient What is your living situation today?: I have a steady place to live Within the past 12 months, did the food you bought not last and you didn't have the money to get more?: Never true Within the past 12 months, did you worry whether your food would run out before you got money to buy more?: Never true Do you have trouble paying for medicines?: No Do you have trouble getting transportation to medical appointments?: No Do you have trouble paying your heating and electricity bill?: No Do you have trouble taking care of your child, family member or friend?: No Do you have trouble with day-to-day activities such as bathing, preparing meals, shopping, managing finances, etc.?: No Are you currently unemployed and looking for a job?: No Are you interested in more education?: No Please select the resources that you would like help with: None THRIVE Score: 0 AUDIT C Alcohol Use Questionnaire (AUDIT-C) 1. How often do you have a drink containing alcohol?: Never Total Score: 0 CHANG-7 AMB Questionnaire CHANG-7 Date CHANG - 7 assessed: 04/07/23 Feeling nervous, anxious, or on edge: 0 = Not at all Not being able to stop or control worryin = Not at all Worrying too much about different things: 0 = Not at all Trouble relaxin = Not at all Being so restless that it is hard to sit still: 0 = Not at all Becoming easily annoyed or irritable: 0 = Not at all Feeling afraid as if something awful might happen: 0 = Not at all Total CHANG-7 score (0-4 normal; 5-9 mild; 10-14 moderate; 15-21 severe): 0 Source: Developed by Drs. Bradley Yuan, Reji Dickey and colleagues, with an educational samina from [employer]. Review of Systems Const Denies headache(s) Eyes Denies loss of vision ENT Denies vertigo, Denies dizziness, Denies headache(s) and Denies sore throat Card Denies chest pain, Denies leg edema and Denies lightheadedness Resp Denies cough, Denies hemoptysis and Denies wheezing GI Denies abdominal pain, Denies melena, Denies constipation, Denies diarrhea and Denies vomiting Denies urinary frequency, Denies dysuria and Denies urinary urgency Musc Denies arthralgias, Denies joint swelling, Denies numbness and Denies tingling Neuro Denies Abnormal speech present, Denies behavioral changes, Denies vertigo, Denies dizziness, Denies headache(s), Denies loss of vision, Denies memory loss, Denies numbness and Denies tingling Psych Denies anxiety, Denies behavioral changes, Denies depression, Denies memory loss and Denies panic attacks Homer/Lymph Denies easy bleeding and Denies easy bruising Aller/Immun Denies wheezing Physical exam (Primary Care) Vital Signs: Last Vital Signs BP 124/80 04/07/23 08:33 Oxygen Delivery Method Room Air 04/07/23 08:33 BMI result Body Mass Index 25.6 Tobacco/Smoking Status: Tobacco use Status Tobacco use date assessed 04/07/23 04/07/23 08:40 Patient Tobacco Use Status Former Tobacco user 04/07/23 08:40 e-Cigarette/Vaping Use Never Used 04/07/23 08:40 PHQ-9: PHQ-9 Score PHQ-9: Total score 04/07/23 09:25 Depression Screening Interpretation: Positive Depression Screening Follow-up: Existing condition and Community Mental Health Worker F/U Thrive Assessment: Date of Thrive Assessment Date Thrive assessed 04/07/23 04/07/23 08:40 Const General: healthy appearing, no acute distress, alert and awake Nutritional Appearance: well nourished Orientation/consciousness: oriented to person, oriented to place and oriented to time HENMT Ears: TM's normal bilaterally General nose exam: Normal nasal mucous membranes and turbinates present Eyes Conjunctivae: conjunctivae normal Sclerae: sclerae normal Pupils: Equal, round and reactive pupils present Neck Neck: Yes no lymphadenopathy and Yes no JVD Thyroid: Thyroid normal Carotids: no bruits Resp Effort & Inspection: normal respiratory effort and not tachypneic Auscultation: no crackles, no rales, no rhonchi and no wheezes Cardio Rate: regular rate Rhythm: regular rhythm Heart sounds: no murmurs and normal S1 and S2 GI Palpation (GI): Soft to palpation, nontender, no hepatomegaly and no splenomegaly Auscultation: normal bowel sounds Skin General skin exam: no rashes or lesions noted and dry skin Neuro General: oriented to person, oriented to place and oriented to time Cranial nerves: Yes Equal, round and reactive pupils present Speech: No Abnormal speech present Gait exam (Neuro): Normal gait present Motor exam (neuro): no tremor noted Extrem Right upper extremity: full ROM Left upper extremity: full ROM Right lower extremity: full ROM; no edema Left lower extremity: full ROM; no edema Psych Mental Status: mental status grossly normal Speech and movement: Normal speech and movement present Affect: normal affect Attitude: cooperative Thought process: Normal thought process present Assessment and Plan Assessment & Plan (1) CHANG (generalized anxiety disorder): Code(s): F41.1 - Generalized anxiety disorder Plan: Continues to suffer with anxiety that causes her major life issues. She continues on Wellbutrin 150 though feels only minimal effect. She attributes a lot of her anxiety to her inability to stay focused on tasks , racing thoughts and work-related stress. She does have family history of ADD disorder and whenever she has the same. She has not able to establish with a mental therapist and will have community health worker try to establish her. (2) ADD (attention deficit disorder): Code(s): F98.8 - Other specified behavioral and emotional disorders with onset usually occurring in childhood and adolescence Qualifiers: Hyperactivity presence: unspecified Qualified Code(s): F98.8 - Other specified behavioral and emotional disorders with onset usually occurring in childhood and adolescence Plan: Unfortunately has not been able to establish care with any psychiatrist. Wellbutrin has not been effective on helping her gather her thoughts and stay on task. Willing to start Concerta for signs and symptoms of ADD disorder. Follow-up in 3-4 weeks to evaluate effectiveness of the medication. (3) Epigastric hernia: Code(s): K43.9 - Ventral hernia without obstruction or gangrene Plan: Had epigastric hernia repair several years ago though felt she has never fully recovered. She is very active though continues to have epigastric pain and discomfort in her muscles when doing core exercises. She is interested in a 2nd opinion from a general surgeon at [facility]. Will send for barium swallow of the upper GI to evaluate for an epigastric hernia as she does report dyspepsia. (4) MDD (major depressive disorder), recurrent episode, moderate: Code(s): F33.1 - Major depressive disorder, recurrent, moderate Plan: Patient's PHQ-9 score positive for major depression which has worsened as of lately. Had mental health worker see her today in office. Will try to treat her ADD in hopes to help her overall mental health state. Also will try to set her a mental health therapist to help talk things through. Orders: Orders Comprehensive [place]. Panel Fast Today Z13.1 - Encounter for screening for diabetes mellitus [place] upper GI w Ba Swallow Today K21.9 - Gastro-esophageal reflux disease without esophagitis, K43.9 - Ventral hernia without obstruction or gangrene, R13.10 - Dysphagia, unspecified Referrals General Surgery Referral K43.9 - Ventral hernia without obstruction or gangrene Medications: New methylphenidate HCl ER (Concerta) Partial Fill upon patient request. 36 mg PO DAILY 28 days 28 tabs 0RF F98.8 - Other specified behavioral and emotional disorders with onset usually occurring in childhood and adolescence Coding Level of Care Code Est Pt Level 4 (04709) Diagnoses CHANG (generalized anxiety disorder) F41.1 Attention deficit disorder, unspecified hyperactivity presence F98.8 Hyperactivity presence: unspecified Epigastric hernia K43.9 MDD (major depressive disorder), recurrent episode, moderate F33.1
[2023-04-07 08:33] VITALS: BP 124/80; BMI 25.6
== END 2023-04-07 09:41 | disposition home or self-care (01) ==
PROVIDERS: PCP Physician Assistant; Visit Provider Physician Assistant
DX: F41.1 Generalized anxiety disorder (principal); F98.8 Other specified behavioral and emotional disorders with onset usually occurring in childhood and adolescence; K43.9 Ventral hernia without obstruction or gangrene; F33.1 Major depressive disorder, recurrent, moderate
CPT/HCPCS: 99214

== ENCOUNTER 2023-05-04 11:42 | Outpatient (AMB) | payer OTHER, SELFPAY ==
--- NOTE | 2023-05-04 11:38 | MHC.PC.OV ---
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: No Information Interpreted: non-clinical & clinical Environmental Consultant: Not Required per policy Accompanied by: Self / Same As Patient Allergies prednisone [PREDNISONE] Allergy (Unknown, Verified 05/04/23 11:47) SWELLING ketorolac Allergy (Verified 05/04/23 11:47) Swelling Medication List - Last Reconciled 05/04/23 by Yo Clemente PA-C bupropion HCl (Wellbutrin SR) 150 mg PO DAILY cyclobenzaprine 10 mg PO TID PRN lorazepam 0.5 mg PO BID PRN 5 days methylphenidate HCl ER (Concerta) 36 mg PO DAILY 28 days ondansetron HCl 4 mg PO Q8H PRN 7 days Tobacco use date assessed: 04/07/23 Dental Screening Dental Screen Date: 05/04/23 Did you have a dental visit in the last 12 months?: Yes Did you have a dental problem in the last 6 months where you did not have access to dental care?: No Was dental information given to patient?: Patient has dentist HPI f/u ADD med ( telehealth) HPI Details Patient is a 37-year-old female being evaluated today via telephone.? At last visit we discussed her generalized anxiety disorder and her inattentive disorder.? Last visit we discussed her anxiety and ADD disorder. She was started on Concerta and has noticed an improvement in her attention and focus at work. She feel she is able to get a handle on her job tasks now that she is on ADD medication. Her anxiety depression is a bit better as well. She has been connected with a counselor group anticipates starting counseling in near future. COUNTS INCLUDE 234 BEDS AT THE [facility] Medical History Abdominal hernia Epigastric hernia Migraine Lump in the abdomen Surgical History History of surgery History of hernia surgery History of ovarian cystectomy History of tonsillectomy and adenoidectomy Family History Mother Fibromyalgia Father Lyme disease Paternal Grandmother History of bladder cancer, Onset Age: 30 History of ovarian cancer Maternal Aunt History of kidney cancer Brother Mental problem Substance abuse Social History Housing: Apartment Are you a primary director of career resources to a significant other at home: No Do you presently have visiting nurse or other home services: No Alcohol intake: former Patient Tobacco Use Status: Former Tobacco user e-Cigarette/Vaping Use: Never Used Second Hand Smoke Exposure: Yes service: No Current occupational status: employed Current occupation: [employer] Cognitive needs: No Hearing needs: No Vision needs: No Questionnaire Thrive Questionnaire Date Thrive assessed: 04/07/23 CHANG-7 AMB Questionnaire CHANG-7 Date CHANG - 7 assessed: 04/07/23 Source: Developed by Drs. Bradley Yuan, Marcela Lozada, Reji Trinidad and colleagues, with an educational samina from [employer]. Review of Systems Const Denies headache(s) Eyes Denies loss of vision ENT Denies vertigo, Denies dizziness, Denies headache(s) and Denies sore throat Card Denies chest pain, Denies leg edema and Denies lightheadedness Resp Denies cough, Denies hemoptysis and Denies wheezing GI Denies abdominal pain, Denies melena, Denies constipation, Denies diarrhea and Denies vomiting Denies urinary frequency, Denies dysuria and Denies urinary urgency Musc Denies arthralgias, Denies joint swelling, Denies numbness and Denies tingling Neuro Denies behavioral changes, Denies vertigo, Denies dizziness, Denies headache(s), Denies loss of vision, Denies memory loss, Denies numbness and Denies tingling Psych Denies anxiety, Denies behavioral changes, Denies depression, Denies memory loss and Denies panic attacks Homer/Lymph Denies easy bleeding and Denies easy bruising Aller/Immun Denies wheezing Physical exam (Primary Care) Tobacco/Smoking Status: Tobacco use Status Tobacco use date assessed 04/07/23 05/04/23 11:41 Patient Tobacco Use Status Former Tobacco user 05/04/23 11:41 e-Cigarette/Vaping Use Never Used 05/04/23 11:41 Thrive Assessment: Date of Thrive Assessment Date Thrive assessed 04/07/23 05/04/23 11:41 Telehealth Telehealth Location of provider rendering services: practice address Location of patient: address on file Patient Identification confirmed using: Name, : Yes Telehealth method: voice only Patient verbally consented to treatment: Yes Patient verbally consented to billing insurance company: Yes Patient informed of any privacy concerns related to visit: Yes Minutes spent on Phone/Video with Pt.: 11 Assessment and Plan Assessment & Plan (1) ADD (attention deficit disorder): Code(s): F98.8 - Other specified behavioral and emotional disorders with onset usually occurring in childhood and adolescence Qualifiers: Hyperactivity presence: unspecified Qualified Code(s): F98.8 - Other specified behavioral and emotional disorders with onset usually occurring in childhood and adolescence Plan: She is started Concerta 36 mg and has noted a difference in her attention and focus. She does report feeling she has a grasp on her concentration at work. This has been reducing her anxiety and depression. She is willing to increase her dose to 54 mg for a more optimal affect on her attention and focus. (2) CHANG (generalized anxiety disorder): Code(s): F41.1 - Generalized anxiety disorder Plan: Continues to suffer with anxiety that causes her major life issues. She continues on Wellbutrin 150 though feels only minimal effect. (3) MDD (major depressive disorder), recurrent episode, moderate: Code(s): F33.1 - Major depressive disorder, recurrent, moderate Plan: She reports her depression is a bit better since starting new ADD medication. She does have connection now with mental health therapy group been his anticipating getting a mental health therapist and soon psychiatrist. Medications: New methylphenidate HCl ER (Concerta) Partial Fill upon patient request. 54 mg PO DAILY 28 days 28 tabs 0RF F98.8 - Other specified behavioral and emotional disorders with onset usually occurring in childhood and adolescence Refilled ondansetron HCl 4 mg PO Q8H 7 days PRN 21 tabs 0RF nausea and vomiting lorazepam 0.5 mg PO BID 5 days PRN 10 tabs 0RF anxiety F41.1 - Generalized anxiety disorder bupropion HCl (Wellbutrin SR) 150 mg PO DAILY 30 tabs 3RF F41.1 - Generalized anxiety disorder Discontinued methylphenidate HCl ER (Concerta) Partial Fill upon patient request. Discontinued Reason: Doctor's Order 36 mg PO DAILY 28 days 28 tabs 0RF F98.8 - Other specified behavioral and emotional disorders with onset usually occurring in childhood and adolescence Coding Level of Care Code Tele Est Pt Level 4 (56071) Diagnoses Attention deficit disorder, unspecified hyperactivity presence F98.8 Hyperactivity presence: unspecified CHANG (generalized anxiety disorder) F41.1 MDD (major depressive disorder), recurrent episode, moderate F33.1
== END 2023-05-04 12:38 | disposition home or self-care (01) ==
LOC: HO.HMGH 11:42
PROVIDERS: PCP Physician Assistant; Visit Provider Physician Assistant
DX: F98.8 Other specified behavioral and emotional disorders with onset usually occurring in childhood and adolescence (principal); F41.1 Generalized anxiety disorder; F33.1 Major depressive disorder, recurrent, moderate
CPT/HCPCS: 99442

== ENCOUNTER 2023-05-20 08:48 | Outpatient (AMB) | payer OTHER, SELFPAY ==
--- NOTE | 2023-05-20 09:06 | A.OFFPC_ITS ---
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 She has noted a lump/ lymph node over the last month. She has been suffering with as per respiratory symptoms consistent with allergic rhinitis. She is somewhat concerned about a cancer diagnosis. PLAN: Out of abundance of caution will send for ultrasound of this lymph node. [facility] Medical History Abdominal hernia Epigastric hernia Migraine Lump in the abdomen Surgical History History of surgery History of hernia surgery History of ovarian cystectomy History of tonsillectomy and adenoidectomy Family History Mother Fibromyalgia Father Lyme disease Paternal Grandmother History of bladder cancer, Onset Age: 30 History of ovarian cancer Maternal Aunt History of kidney cancer Brother Mental problem Substance abuse Social History Housing: Apartment Are you a primary manager intensive care to a significant other at home: No Do you presently have visiting nurse or other home services: No Alcohol intake: former Patient Tobacco Use Status: Former Tobacco user e-Cigarette/Vaping Use: Never Used Second Hand Smoke Exposure: Yes service: No Current occupational status: employed Current occupation: [employer] Cognitive needs: No Hearing needs: No Vision needs: No Questionnaire Thrive Questionnaire Date Thrive assessed: 03/25/22 CHANG-7 AMB Questionnaire CHANG-7 Date CHANG - 7 assessed: 04/07/23 Source: Developed by Drs. Bradley Yuan, Marcela Lozada, Reji Trinidad and colleagues, with an educational samina from [employer]. Review of Systems Const Denies headache(s) Eyes Denies loss of vision ENT Denies vertigo, Denies dizziness, Denies headache(s) and Denies sore throat Card Denies chest pain, Denies leg edema and Denies lightheadedness Resp Denies cough, Denies hemoptysis and Denies wheezing GI Denies abdominal pain, Denies melena, Denies constipation, Denies diarrhea and Denies vomiting Denies urinary frequency, Denies dysuria and Denies urinary urgency Musc Denies arthralgias, Denies joint swelling, Denies numbness and Denies tingling Neuro Denies Abnormal speech present, Denies behavioral changes, Denies vertigo, Denies dizziness, Denies headache(s), Denies loss of vision, Denies memory loss, Denies numbness and Denies tingling Psych Denies anxiety, Denies behavioral changes, Denies depression, Denies memory loss and Denies panic attacks Homer/Lymph Denies easy bleeding and Denies easy bruising Aller/Immun Denies wheezing Physical exam (Primary Care) Vital Signs: Last Vital Signs Pulse 81 05/20/23 09:07 BP 100/62 05/20/23 09:10 Pulse Ox 99 05/20/23 09:07 Oxygen Delivery Method Room Air 05/20/23 09:07 BMI result Body Mass Index 24.8 Tobacco/Smoking Status: Tobacco use Status Tobacco use date assessed 05/20/23 05/20/23 09:11 Patient Tobacco Use Status Former Tobacco user 05/20/23 09:11 e-Cigarette/Vaping Use Never Used 05/20/23 09:11 Thrive Assessment: Date of Thrive Assessment Date Thrive assessed 03/25/22 05/20/23 09:11 Const General: healthy appearing, no acute distress, alert and awake Nutritional Appearance: well nourished Orientation/consciousness: oriented to person, oriented to place and oriented to time HENMT Ears: TM's normal bilaterally General nose exam: Normal nasal mucous membranes and turbinates present Eyes Conjunctivae: conjunctivae normal Sclerae: sclerae normal Pupils: Equal, round and reactive pupils present Neck Neck: Yes no lymphadenopathy and Yes no JVD Thyroid: Thyroid normal Carotids: no bruits Neck images: 2 1. SMALL MOVABLE PALPABLE SOFT LUMP IN THE AREA OUTLINED. Resp Effort & Inspection: normal respiratory effort and not tachypneic Auscultation: no crackles, no rales, no rhonchi and no wheezes Cardio Rate: regular rate Rhythm: regular rhythm Heart sounds: no murmurs and normal S1 and S2 GI Palpation (GI): Soft to palpation, nontender, no hepatomegaly and no splenomegaly Auscultation: normal bowel sounds Skin General skin exam: no rashes or lesions noted and dry skin Neuro General: oriented to person, oriented to place and oriented to time Cranial nerves: Yes Equal, round and reactive pupils present Speech: No Abnormal speech present Gait exam (Neuro): Normal gait present Motor exam (neuro): no tremor noted Extrem Right upper extremity: full ROM Left upper extremity: full ROM Right lower extremity: full ROM; no edema Left lower extremity: full ROM; no edema Psych Mental Status: mental status grossly normal Speech and movement: Normal speech and movement present Affect: normal affect Attitude: cooperative Thought process: Normal thought process present Assessment and Plan Assessment & Plan (1) Cervical lymphadenitis: Code(s): I88.9 - Nonspecific lymphadenitis, unspecified Plan: Noted a single inflamed lymph node over the posterior cervical left chain. Likely reactive to her allergies though will send for ultrasound for evaluation. Orders: Orders 2 US soft tiss head and/or neck Today I88.9 - Nonspecific lymphadenitis, unspecified Coding Level of Care Code Est Pt Level 3 (66142) Diagnoses Cervical lymphadenitis I88.9
[2023-05-20 09:07] VITALS: BP 80/60; PULSE 81; O2SAT 99; BMI 24.8
[2023-05-20 09:10] VITALS: BP 100/62
== END 2023-05-20 09:27 | disposition home or self-care (01) ==
PROVIDERS: PCP Physician Assistant; Visit Provider Physician Assistant
DX: I88.9 Nonspecific lymphadenitis, unspecified (principal)
CPT/HCPCS: 99213

== ENCOUNTER 2023-06-03 09:01 | Outpatient (REF) | payer OTHER, SELFPAY ==
--- NOTE | ~2023-06-03 | FL_ITS ---
EXAMINATION: XR FLUOROSCOPY UPPER GI WITH AIR CLINICAL INFORMATION: 37-year-old female complaining of chronic epigastric pain, severe nausea, vomiting in the morning (not ), reflux. Patient has surgical history of rectus hernia repairs in the epigastric region, although no definite history of gastric surgery or hiatus hernia repair. Patient has history of anxiety. COMPARISON: No recent prior available. Correlation made with CT abdomen and pelvis 10/21/2020. TECHNIQUE: Fluoroscopic air contrast upper GI examination was performed utilizing standard techniques with thin and thick barium and effervescent granules. Numerous spot images were obtained. Several fluoroscopic image hold cine sequences were also obtained. Study was significantly limited, as the patient could not tolerate the effervescent granules or thick barium without severe nausea and retching. This significantly limited the initial part of the examination, as well as limited coating of the esophagus, stomach, and duodenum. The patient could tolerate thin barium only, and could not retain the effervescent granule gas. This limits the study sensitivity. FINDINGS: Lateral cine images of the oropharynx and hypopharynx demonstrate normal swallow mechanism with normal epiglottic inversion and soft palate elevation. No tracheal penetration, glottic or subglottic aspiration identified. No nasopharyngeal reflux present. Hypopharyngeal structures appear normal without evidence of mass or diverticulum. There was no significant cricopharyngeal achalasia. Dual and single contrast images of the esophagus demonstrate normal caliber, contour, and mucosal pattern. No evidence of stricture, mass, or ulcerations identified. Esophageal peristalsis was moderately disordered. There is a small to moderate-sized type I hiatus hernia. GE junction had a normal appearance without evidence of prior surgical change. Mild gastroesophageal reflux was noted throughout the examination to the level of the meagan. Evaluation of the stomach is moderately limited due to poor coating, particularly of the lesser curvature and posterosuperior wall. Gastric folds appear mildly thickened, and mild prominence of the area gastricae is noted within the body and antrum, most likely representing mild gastritis. Contrast freely passed into the gastric antrum and duodenal bulb without delay. Single and air-contrast images of the duodenal bulb demonstrate no abnormality. The duodenal sweep has a normal appearance, course, and mucosal fold appearance. No malrotation. The imaged proximal jejunum has a normal fold pattern and caliber. There are bilateral nipple rings, as well as a navel ring incidentally noted. FLUOROSCOPY TIME: 3 minutes 45 seconds Number of Spot Images: 12 Number of cines obtained: 10 DOSE AREA PRODUCT: 1978 uGy-m2 (microgray-meter squared) FL/FL upper GI w Ba Swallow IMPRESSION: 1. Limited examination as detailed, as the patient could not tolerate the effervescent granules nor tolerate thick barium. 2. Disordered esophageal peristalsis. No mucosal abnormality. 3. Small to moderate-sized type I hiatus hernia. 4. Mild gastroesophageal reflux noted throughout the exam. 5. Findings consistent with erosive gastritis.
== END 2023-06-03 09:02 | disposition home or self-care (01) ==
LOC: HO.XRAY 09:01
PROVIDERS: PCP Physician Assistant; Visit Provider Physician Assistant
DX: R13.10 Dysphagia, unspecified (principal); K43.9 Ventral hernia without obstruction or gangrene; K21.9 Gastro-esophageal reflux disease without esophagitis
CPT/HCPCS: 74240

== ENCOUNTER → 2023-06-03 09:04 | Outpatient (BNV) | payer OTHER, SELFPAY | PROVIDERS: PCP Physician Assistant; Visit Provider Radiology Diagnostic Radiology | DX: R10.13 Epigastric pain (principal) | CPT/HCPCS: 74246 ==

== ENCOUNTER 2023-06-07 15:30 | Outpatient (REF) | payer OTHER, SELFPAY ==
--- NOTE | ~2023-06-07 | US_ITS ---
EXAMINATION: US SOFT TISSUE HEAD/NECK CLINICAL INFORMATION: Left posterior cervical lymphadenitis noted. COMPARISON: None available. TECHNIQUE: Linear transducer turpin-scale and color Doppler examination of the posterior left neck. FINDINGS: Multiple posterior left neck cervical nodes none pathologically enlarged or otherwise abnormal in morphology and the largest measuring 1.1 x 0.2 x 0.5 cm and 1.5 x 0.3 x 1.0 cm. US/US soft tiss head and/or neck IMPRESSION: Multiple posterior left neck cervical nodes none pathologically enlarged or otherwise abnormal in morphology.
== END 2023-06-07 15:31 | disposition home or self-care (01) ==
LOC: HO.US 15:30
PROVIDERS: PCP Physician Assistant; Visit Provider Physician Assistant
DX: I88.9 Nonspecific lymphadenitis, unspecified (principal)
CPT/HCPCS: 76536

== ENCOUNTER 2023-07-28 09:30 | Outpatient (AMB) | payer OTHER, SELFPAY ==
[2023-07-28 09:40] VITALS: BP 122/82; PULSE 88; O2SAT 98; BMI 24.9
--- NOTE | 2023-07-28 09:40 | MHC.PC.OV ---
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 Accompanied by: Self / Same As Patient Allergies prednisone [PREDNISONE] Allergy (Unknown, Verified 07/28/23 09:52) SWELLING ketorolac Allergy (Verified 07/28/23 09:52) Swelling Medication List - Last Reconciled 07/28/23 by Yo Clemente PA-C bupropion HCl SR (Wellbutrin SR) 150 mg PO DAILY cyclobenzaprine 10 mg PO TID PRN lorazepam 0.5 mg PO BID PRN 5 days methylphenidate HCl ER (Concerta) 54 mg PO DAILY 28 days omeprazole 20 mg PO DAILY 30 days ondansetron HCl 4 mg PO Q8H PRN 7 days Tobacco use date assessed: 05/20/23 Dental Screening Dental Screen Date: 05/04/23 HPI Annual Exam HPI Details Patient is a 37-year-old female here today for routine annual physical. Patient has a past medical history significant for major depressive disorder, ADHD, GERD, generalized anxiety disorder, history of epigastric hernia repair. ADHD: Patient continues on Concerta with good effect on attention and focus on job detail tasks. She does admit to some lessening effect in the afternoon of the stimulant. .. Anxiety/ depression: She reports since being on Wellbutrin and Concerta her anxiety and depression has been much better. She does report still having anxious days and is interested in a higher dose of Wellbutrin to help with this. .. GERD: Continues on daily use of omeprazole. Of note did have endoscopy that did show erosive esophagitis. 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- using tapestry- would like to establish with [facility] [place] Vaccines: Up-to-date with tetanus vaccine, declines flu and COVID vaccines [facility] Medical History Abdominal hernia Epigastric hernia Migraine Lump in the abdomen Surgical History History of surgery History of hernia surgery History of ovarian cystectomy History of tonsillectomy and adenoidectomy Family History Mother Fibromyalgia Father Lyme disease Paternal Grandmother History of bladder cancer, Onset Age: 30 History of ovarian cancer Maternal Aunt History of kidney cancer Brother Mental problem Substance abuse Social History (Updated 07/28/23 @ 09:56 by Yo Clemente PA-C) Housing: Apartment Are you a primary career technical counselor to a significant other at home: No Do you presently have visiting nurse or other home services: No Alcohol intake: former Patient Tobacco Use Status: Former Tobacco user e-Cigarette/Vaping Use: Never Used Second Hand Smoke Exposure: Yes service: No Current occupational status: employed Current occupation: [employer] Cognitive needs: No Hearing needs: No Vision needs: No Questionnaire Thrive Questionnaire Date Thrive assessed: 03/25/22 CHANG-7 AMB Questionnaire CHANG-7 Date CHANG - 7 assessed: 04/07/23 Source: Developed by Drs. Bradley Yuan, Marcela Lozada, Reji Trinidad and colleagues, with an educational samina from [employer]. Review of Systems Const Denies body aches, Denies chills, Denies excessive sweating, Denies fatigue, Denies fever(s) and Denies headache(s) Eyes Denies blurry vision ENT Denies dysphagia, Denies vertigo, Denies dizziness, Denies headache(s), Denies hearing loss and Denies tinnitus Card Denies chest pain, Denies chest pain with activity, Denies syncope, Denies irregular heart rhythm and Denies dyspnea Resp Denies chest congestion, Denies cough, Denies hemoptysis, Denies dyspnea and Denies wheezing GI Denies abdominal pain, Denies melena, Denies hematochezia, Denies coffee ground emesis, Denies dysphagia, Denies diarrhea, Denies nausea and Denies vomiting Denies urinary frequency, Denies dysuria, Denies urinary hesitancy and Denies urinary urgency Musc Denies arthralgias, Denies limited range of motion, Denies muscle cramps and Denies muscle weakness Skin/Breast Denies rash and Denies skin ulcer Neuro Denies Abnormal speech present, Denies confusion, Denies vertigo, Denies dizziness, Denies syncope, Denies headache(s), Denies memory loss and Denies seizure-like activity Psych Denies anxiety, Denies confusion, Denies depression, Denies memory loss, Denies panic attacks and Denies paranoia Endo Denies excessive sweating, Denies fatigue, Denies flushing, Denies polydipsia and Denies polyuria Aller/Immun Denies wheezing Physical exam (Primary Care) Vital Signs: Last Vital Signs Pulse 88 07/28/23 09:40 BP 122/82 07/28/23 09:40 Pulse Ox 98 07/28/23 09:40 Oxygen Delivery Method Room Air 07/28/23 09:40 BMI result Body Mass Index 24.9 Tobacco/Smoking Status: Tobacco use Status Tobacco use date assessed 05/20/23 07/28/23 09:43 Patient Tobacco Use Status Former Tobacco user 07/28/23 09:56 e-Cigarette/Vaping Use Never Used 07/28/23 09:56 Thrive Assessment: Date of Thrive Assessment Date Thrive assessed 03/25/22 07/28/23 09:43 Const General: cooperative, comfortable, no acute distress, alert and awake; No confusion Orientation/consciousness: oriented to person, oriented to place, patient oriented x3 and No confusion HENMT Head: Yes normocephalic Ears: external ears normal and TM's normal bilaterally Face and sinus: No sinus tenderness Mouth: Normal oral and palatal mucosa present and tongue normal Teeth and gingiva: dentition normal and gingiva normal Throat: Yes posterior oropharynx normal, Yes tonsils normal and Yes uvula midline Eyes Conjunctivae: conjunctivae normal Sclerae: sclerae normal Pupils: Equal, round and reactive pupils present EOM: EOMs intact bilaterally Direct Ophthalmoscopy: No no photophobia Neck Neck: Yes no lymphadenopathy, No tender and Yes no JVD Thyroid: Thyroid normal Carotids: no bruits Chest Chest palpation & inspection: no tenderness Resp Effort & Inspection: normal respiratory effort, no audible wheezes, not labored and no stridor Auscultation: no crackles, no rales, no rhonchi and no wheezes Cardio Jugular venous distension: no JVD Rate: regular rate, not bradycardic and not tachycardic Rhythm: regular rhythm Bruits: no carotid bruits Peripheral pulses: Peripheral pulses 2+ throughout GI Inspection: Yes normal to inspection, No abdominal wall ecchymosis and No visible herniation Palpation (GI): Soft to palpation, nontender, no guarding, not rigid and No hepatosplenomegaly present Auscultation: normoactive bowel sounds General: Yes no CVA tenderness Back/Spine/Pelvis Back: no CVA tenderness and No back tenderness Cervical Spine: cervical ROM normal Thoracic/Lumbar Spine: thoracic and lumbar spine normal to inspection, straight leg raise negative bilaterally, No thoraco-lumbar ROM limited and No lumbar spinal tenderness Skin Lesions: no lesions Rashes: no rashes Wounds: no wounds Neuro General: oriented to person, oriented to place, patient oriented x3, CN's II-XI intact bilaterally and No confusion Cranial nerves: Yes Equal, round and reactive pupils present and Yes Normal accommodation reflex present Cognition (Neuro): normal cognition Speech: No Abnormal speech present Gait exam (Neuro): Normal gait present Motor exam (neuro): 5/5 motor strength present throughout Extrem Right upper extremity: full ROM; no cyanosis Left upper extremity: full ROM; no cyanosis Right lower extremity: no edema Left lower extremity: no edema Psych Appearance: grossly normal Mental Status: mental status grossly normal Affect: normal affect Attitude: cooperative Thought process: Normal thought process present Assessment and Plan Assessment & Plan (1) Annual physical exam: Code(s): Z00.00 - Encounter for general adult medical examination without abnormal findings (2) ADD (attention deficit disorder): Code(s): F98.8 - Other specified behavioral and emotional disorders with onset usually occurring in childhood and adolescence Qualifiers: Hyperactivity presence: unspecified Qualified Code(s): F98.8 - Other specified behavioral and emotional disorders with onset usually occurring in childhood and adolescence Plan: . She does report feeling she has a grasp on her concentration at work. This has been reducing her anxiety and depression. She continues on Concerta 54 mg which has been effective. She does report some lessening effect of the stimulant in the later afternoon. (3) CHANG (generalized anxiety disorder): Code(s): F41.1 - Generalized anxiety disorder Plan: She does report her anxiety is much better since on combination mental health medication. She is interested in higher dose of Wellbutrin to help her deal with her depression and anxiety.. (4) MDD (major depressive disorder), recurrent episode, moderate: Code(s): F33.1 - Major depressive disorder, recurrent, moderate Plan: She reports her depression is a bit better since starting new ADD medication. She does have connection now with mental health therapy group been his anticipating getting a mental health therapist and soon psychiatrist. (5) Screening for diabetes mellitus (DM): Code(s): Z13.1 - Encounter for screening for diabetes mellitus (6) Cervical cancer screening: Code(s): Z12.4 - Encounter for screening for malignant neoplasm of cervix (7) Allergies: Code(s): T78.40XA - Allergy, unspecified, initial encounter Qualifiers: Encounter type: initial encounter Qualified Code(s): T78.40XA - Allergy, unspecified, initial encounter Plan: She reports she has been suffering with allergies and has been worse this year. Does use Beverly though finds it very expensive. She would like a script for Beverly Orders: Referrals [facility] Referral Z12.4 - Encounter for screening for malignant neoplasm of cervix Medications: New bupropion HCl SR (Wellbutrin SR) 200 mg PO DAILY 90 tabs 1RF 90 days F33.1 - Major depressive disorder, recurrent, moderate fexofenadine (Beverly Allergy) 180 mg PO DAILY 90 tabs 1RF 90 days T78.40XA - Allergy, unspecified, initial encounter Refilled methylphenidate HCl ER (Concerta) Partial Fill upon patient request. 54 mg PO DAILY 28 tabs 0RF 28 days F98.8 - Other specified behavioral and emotional disorders with onset usually occurring in childhood and adolescence Discontinued bupropion HCl SR (Wellbutrin SR) Discontinued Reason: Doctor's Order 150 mg PO DAILY 30 tabs 3RF F41.1 - Generalized anxiety disorder Coding Level of Care Code Est Pt Prev Care 18-39y(21903) Diagnoses Annual physical exam Z00.00 Attention deficit disorder, unspecified hyperactivity presence F98.8 Hyperactivity presence: unspecified CHANG (generalized anxiety disorder) F41.1 MDD (major depressive disorder), recurrent episode, moderate F33.1 Screening for diabetes mellitus (DM) Z13.1 Cervical cancer screening Z12.4 Allergy, initial encounter T78.40XA Encounter type: initial encounter
== END 2023-07-28 11:53 | disposition home or self-care (01) ==
PROVIDERS: PCP Physician Assistant; Visit Provider Physician Assistant
DX: Z00.00 Encounter for general adult medical examination without abnormal findings (principal); F98.8 Other specified behavioral and emotional disorders with onset usually occurring in childhood and adolescence; F41.1 Generalized anxiety disorder; F33.1 Major depressive disorder, recurrent, moderate; Z13.1 Encounter for screening for diabetes mellitus; Z12.4 Encounter for screening for malignant neoplasm of cervix; T78.40XA Allergy, unspecified, initial encounter
CPT/HCPCS: 99395

== ENCOUNTER 2024-01-10 13:00 | Outpatient (AMB) | payer OTHER, SELFPAY ==
[2024-01-10 14:22] VITALS: BP 142/98; PULSE 88; TEMP 36.7; O2SAT 98; BMI 24.7
--- NOTE | 2024-01-10 14:22 | AM.OFFWIN_ITS ---
Intake Vital Signs 01/10/24 14:22 Height 5 ft 4 in Weight 144 lb BMI 24.7 BP 142/98 H Blood Pressure Location Lt brachial Position Sitting Pulse 88 Pulse Source Pulse Oximeter Temp 98.1 F Temp Source Temporal Artery Scan Pulse Oximetry (%) 98 Oxygen Delivery Method Room Air Intake Visit Reasons: EP LT lower back pain & neck pain [phone] Intake Note: Pt presents to the office today for left sided lower back pain and neck pain x5 days. Pt denies any urinary symptoms. Patient Tobacco Use Status: Former Tobacco user Allergies prednisone [PREDNISONE] Allergy (Unknown, Verified 01/10/24 14:22) SWELLING ketorolac Allergy (Verified 01/10/24 14:22) Swelling HPI EP LT lower back pain & neck pain [phone] HPI Details This note is constructed using voice recognition software. While every effort has been made to ensure accuracy, inspector eyeglass errors may have been included. The patient is a 38 year old female who presents to the clinic today with left shoulder/neck and left lower back pain. She reports that the left shoulder and neck has been a problem intermittently for the past 5-6 months. 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 She has tried NSAIDs with little effect, heat. She also reports that she has had left lower back pain that tried radiates to her leg intermittently since 2016. She has been told that it may be sciatica, but however whenever she gets to her primary to be evaluated the symptoms have already resolved. She denies any specific injury, fall, surgery to the area. She denies loss of control of bladder or bowel. The symptoms have set in about a week or so ago, and have been getting worse. [facility] Medical History Abdominal hernia Epigastric hernia Migraine Lump in the abdomen Surgical History History of surgery History of hernia surgery History of ovarian cystectomy History of tonsillectomy and adenoidectomy Family History Mother Fibromyalgia Father Lyme disease Paternal Grandmother History of bladder cancer, Onset Age: 30 History of ovarian cancer Maternal Aunt History of kidney cancer Brother Mental problem Substance abuse Social History (Updated 07/28/23 @ 09:56 by Yo Clemente PA-C) Housing: Apartment Are you a primary home care and home health aides teacher to a significant other at home: No Do you presently have visiting nurse or other home services: No Alcohol intake: former Patient Tobacco Use Status: Former Tobacco user e-Cigarette/Vaping Use: Never Used Second Hand Smoke Exposure: Yes service: No Current occupational status: employed Current occupation: [employer] Cognitive needs: No Hearing needs: No Vision needs: No Review of Systems Const All systems reviewed & are unremarkable except as noted in HPI and below Physical Exam Vital Signs: Last Vital Signs Temp 98.1 F 01/10/24 14:22 Pulse 88 01/10/24 14:22 BP 142/98 H 01/10/24 14:22 Pulse Ox 98 01/10/24 14:22 Oxygen Delivery Method Room Air 01/10/24 14:22 BMI result Body Mass Index 24.7 Const General: cooperative, healthy appearing, comfortable, no acute distress and well developed Orientation/consciousness: patient oriented x3 Limitations: no limitations Resp Effort & Inspection: normal respiratory effort and able to speak in complete sentences Back/Spine/Pelvis Other: Left cervical and trapezius region increased muscle bulging with palpable knot. Reduced lateral rotation to the left due to pain. Normal lateral rotation to the right. Strength 5/5 all extremities equal bilaterally. Left SI joint tenderness, positive SLR, negative well SLR. Distal neurovascular exam intact. Skin General skin exam: no rashes or lesions noted Neuro General: patient oriented x3 Extrem General: Yes normal to inspection Assessment & Plan Assessment & Plan (1) Cervicalgia: Code(s): M54.2 - Cervicalgia Plan: Symptomatic management with prednisone burst as well as muscle relaxers. Advised heat/ice, consider physical therapy referral with ongoing symptoms. Advised follow up with PCP as needed with worsening or failure to resolve. (2) Chronic SI joint pain: Code(s): M53.3 - Sacrococcygeal disorders, not elsewhere classified; G89.29 - Other chronic pain Plan: Symptomatic management with prednisone burst as well as muscle relaxers. Advised heat/ice, consider physical therapy referral with ongoing symptoms. Advised follow up with PCP as needed with worsening or failure to resolve. She may also benefit from imaging with ongoing symptoms versus referral to pain management or orthopedics. Plan See above for full details and plan. Medications: New 2 prednisone 40 mg (2 x 20 mg) PO DAILY 5 days 10 tabs 0RF Refilled cyclobenzaprine 10 mg PO TID PRN 20 tabs 0RF muscle spasm Coding Level of Care Code Est Pt Level 3 (58864) Diagnoses Cervicalgia M54.2 Chronic SI joint pain M53.3; G89.29
== END 2024-01-10 14:55 | disposition home or self-care (01) ==
PROVIDERS: PCP Physician Assistant; Visit Provider Registered Nurse
DX: M54.2 Cervicalgia (principal); M53.3 Sacrococcygeal disorders, not elsewhere classified; G89.29 Other chronic pain

== ENCOUNTER → 2024-01-10 13:00 | Outpatient (BNVA) | payer OTHER, SELFPAY | PROVIDERS: PCP Physician Assistant; Visit Provider Registered Nurse ==

== ENCOUNTER 2024-07-18 10:53 | Outpatient (REF) | payer OTHER, SELFPAY ==
[2024-07-18 13:41] LABS: Hematocrit 36.1 % (37.0-47.0); Hemoglobin 12.4 g/dl (12.0-16.0); Mean Corpuscular HGB Conc 34.3 g/dl (31.0-35.0); Mean Corpuscular Hemoglobin 31.7 pg (27.0-33.0); Mean Corpuscular Volume 92.3 fL (80.0-98.0); Mean Platelet Volume 10.3 fL (9.4-12.3); Platelet Count 252 X10*3/uL (160-400); Red Blood Count 3.91 X10*6/uL (4.20-5.50); Red Cell Distribution Width 13.2 % (11.0-16.0); White Blood Count 6.5 X10*3/uL (4.8-10.8)
[2024-07-18 14:16] LABS: Alanine Aminotransferase 16 U/L (0-31); Albumin Level 4.4 g/dL (3.5-5.0); Alkaline Phosphatase 49 U/L (39-117); Anion Gap 9 (12-20); Aspartate Amino Transferase 14 U/L (5-31); Bilirubin Total 0.3 mg/dL (0.0-1.0); Blood Urea Nitrogen 15 mg/dL (9-16); Calcium 9.3 mg/dL (8.4-10.2); Carbon Dioxide 28 mmol/L (22-29); Chloride 107 mmol/L (96-108); Estimated Glomerular Filt Rate > 60; Glucose Random 97 mg/dL (60-115); Iron 89 mcg/dL (30-160); Percent Iron Saturation 27 % (15-50); Potassium 3.9 mmol/L (3.3-5.1); Sodium 140 mmol/L (135-145); Total Iron Binding Capacity 328 mcg/dL (228-428); Total Protein 6.5 g/dL (6.5-8.0); Unsaturated Iron Binding 239 ug/dL
== END 2024-07-18 10:54 | disposition home or self-care (01) ==
LOC: HO.LAB 10:53
PROVIDERS: PCP Physician Assistant; Visit Provider Physician Assistant
DX: N92.0 Excessive and frequent menstruation with regular cycle (principal); D50.9 Iron deficiency anemia, unspecified; F33.1 Major depressive disorder, recurrent, moderate; F41.1 Generalized anxiety disorder
CPT/HCPCS: 36415; 80053; 83540; 85027; 96127

== ENCOUNTER 2024-07-18 10:53 | Outpatient (AMB) | payer OTHER, SELFPAY ==
--- NOTE | 2024-07-18 11:00 | A.OFFPC_ITS ---
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 Accompanied by: Self / Same As Patient Allergies prednisone [PREDNISONE] Allergy (Unknown, Verified 07/18/24 11:12) SWELLING ketorolac Allergy (Verified 07/18/24 11:12) Swelling Medication List - Last Reconciled 07/18/24 by Yo Clemente PA-C bupropion HCl SR (Wellbutrin SR) 200 mg PO DAILY 90 days cyclobenzaprine 10 mg PO TID PRN fexofenadine (Beverly Allergy) 180 mg PO DAILY 90 days fluconazole 150 mg PO Q3D 2 doses lorazepam 0.5 mg PO BID PRN 5 days methylphenidate HCl ER (Concerta) 54 mg PO DAILY 28 days norethindrone (contraceptive) (Lakshmi-BE) 0.35 mg PO DAILY omeprazole 20 mg PO DAILY 90 days Tobacco use date assessed: 07/18/24 Dental Screening Dental Screen Date: 07/18/24 Did you have a dental visit in the last 12 months?: No Did you have a dental problem in the last 6 months where you did not have access to dental care?: No Was dental information given to patient?: Yes HPI heavy bleeding x 1 month, weakness/fatigue HPI Details The patient is a 38-year-old female presenting with heavy menstrual bleeding and significant associated symptoms following her recent adjustment to control medication. After beginning an [id number] contraceptive pill, she experienced pronounced emotional changes and agitation. Upon switching to a physician-provided contraceptive, she experienced uninterrupted menstrual bleeding for over 40 days. Accompanying symptoms include profuse sweating, dizziness, shaking, and severe abdominal cramps, leading to significant discomfort. She performed multiple negative tests. She recognizes her mother's history with fibroids, which have raised concerns about a possible hereditary link. 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 Also patient reports increased depression and anxiety as of late. She has been for due to a right knee injury that was working associated. She has been getting treatment physical therapy in an orthopedic. She does use lorazepam 0.5 mg on an as needed basis She is interested in starting a daily medication to help her with her anxiety on a daily basis. [facility] Medical History Abdominal hernia Epigastric hernia Migraine Lump in the abdomen Surgical History History of surgery History of hernia surgery History of ovarian cystectomy History of tonsillectomy and adenoidectomy Family History Mother Fibromyalgia Father Lyme disease Paternal Grandmother History of bladder cancer, Onset Age: 30 History of ovarian cancer Maternal Aunt History of kidney cancer Brother Mental problem Substance abuse Social History Housing: Apartment Are you a primary home care music therapist to a significant other at home: No Do you presently have visiting nurse or other home services: No Alcohol intake: former Patient Tobacco Use Status: Former Tobacco user e-Cigarette/Vaping Use: Never Used Second Hand Smoke Exposure: Yes service: No Current occupational status: employed Current occupation: [employer] Cognitive needs: No Hearing needs: No Vision needs: No Questionnaire PHQ-9 Over the last 2 weeks, how often have you been bothered by any of the following problems? 1. Little interest or pleasure in doing things: nearly every day 2. Feeling down, depressed, or hopeless: more than half the days 3. Trouble falling or staying asleep, or sleeping too much: nearly every day 4. Feeling tired or having little energy: nearly every day 5. Poor appetite or overeating: nearly every day 6. Feeling bad about yourself - or that you are a failure or have let yourself or your family down: more than half the days 7. Trouble concentrating on things, such as reading the newspaper or watching television: nearly every day 8. Moving or speaking so slowly that other people could have noticed. Or the opposite - being so fidgety or restless that you have been moving around a lot more than usual: more than half the days 9. Thoughts that you would be better off or of hurting yourself in some wa y: not at all Total score: 21 Depression Screening Interpretation: Positive Depression Screening Follow-up: Existing condition and New Medication prescribed Depression Screening Done: Yes 78867 - PHQ-9 Billing: Yes Source: Developed by Drs. Bradley Yuan, Marcela Lozada, Reji Trinidad and colleagues, with an educational samina from [employer]. Thrive Questionnaire Date Thrive assessed: 07/18/24 I am a: Patient What is your living situation today?: I have a steady place to live Within the past 12 months, did the food you bought not last and you didn't have the money to get more?: Never true Within the past 12 months, did you worry whether your food would run out before you got money to buy more?: Never true Do you have trouble paying for medicines?: No Do you have trouble getting transportation to medical appointments?: No Do you have trouble paying your heating and electricity bill?: No Do you have trouble taking care of your child, family member or friend?: No Do you have trouble with day-to-day activities such as bathing, preparing meals, shopping, managing finances, etc.?: No Are you currently unemployed and looking for a job?: No Are you interested in more education?: No Please select the resources that you would like help with: None Currently or been in a relationship where the following occur: No concerns reported THRIVE Score: 0 AUDIT C Alcohol Use Questionnaire (AUDIT-C) 1. How often do you have a drink containing alcohol?: Monthly or less 2. How many drinks containing alcohol do you have on a typical day when you are drinking?: 3 or 4 3. How often do you have six or more drinks on one occasion?: Never Total Score: 2 CHANG-7 AMB Questionnaire CHANG-7 Date CHANG - 7 assessed: 07/18/24 Feeling nervous, anxious, or on edge: 3 = Nearly every day Not being able to stop or control worryin = Nearly every day Worrying too much about different things: 3 = Nearly every day Trouble relaxin = Nearly every day Being so restless that it is hard to sit still: 3 = Nearly every day Becoming easily annoyed or irritable: 3 = Nearly every day Feeling afraid as if something awful might happen: 2 = More than half the days Total CHANG-7 score (0-4 normal; 5-9 mild; 10-14 moderate; 15-21 severe): 20 Source: Developed by Drs. Bradley Yuan, Marcela Lozada, Reji Trinidad and colleagues, with an educational samina from [employer]. CHANG-7 Assessment Billing CHANG-7 Assessment Tool: CHANG-7 Assessment 83108 Review of Systems Const Denies headache(s) Eyes Denies loss of vision ENT Denies vertigo, Denies dizziness, Denies headache(s) and Denies sore throat Card Denies chest pain, Denies leg edema and Denies lightheadedness Resp Denies cough, Denies hemoptysis and Denies wheezing GI Denies abdominal pain, Denies melena, Denies constipation, Denies diarrhea and Denies vomiting Denies urinary frequency, Reports menorrhagia, Reports hot flashes, Denies dysuria, Reports pelvic pain and Denies urinary urgency Musc Denies arthralgias, Denies joint swelling, Denies numbness and Denies tingling Neuro Denies Abnormal speech present, Denies behavioral changes, Denies vertigo, Denies dizziness, Denies headache(s), Denies loss of vision, Denies memory loss, Denies numbness and Denies tingling Psych Reports anxiety, Denies behavioral changes, Reports depression, Denies memory loss and Denies panic attacks Homer/Lymph Denies easy bleeding and Denies easy bruising Aller/Immun Denies wheezing Physical exam (Primary Care) Vital Signs: Last Vital Signs Temp 97.3 F 07/18/24 11:01 Pulse 103 H 07/18/24 11:01 BP 144/96 H 07/18/24 11:01 Pulse Ox 98 07/18/24 11:01 Oxygen Delivery Method Room Air 07/18/24 11:01 BMI result Body Mass Index 27.3 Tobacco/Smoking Status: Tobacco use Status Tobacco use date assessed 07/18/24 07/18/24 11:09 Patient Tobacco Use Status Former Tobacco user 07/18/24 11:00 e-Cigarette/Vaping Use Never Used 07/18/24 11:00 PHQ-9: PHQ-9 Score PHQ-9: Total score 21 07/18/24 11:15 Depression Screening Interpretation: Positive Depression Screening Follow-up: Existing condition and New Medication prescribed Thrive Assessment: Date of Thrive Assessment Date Thrive assessed 07/18/24 07/18/24 11:09 Currently or been in a relationship where the following occur: No concerns reported Const General: healthy appearing, no acute distress, alert and awake Nutritional Appearance: well nourished Orientation/consciousness: oriented to person, oriented to place and oriented to time HENMT Ears: TM's normal bilaterally General nose exam: Normal nasal mucous membranes and turbinates present Eyes Conjunctivae: conjunctivae normal Sclerae: sclerae normal Pupils: Equal, round and reactive pupils present Neck Neck: Yes no lymphadenopathy and Yes no JVD Thyroid: Thyroid normal Carotids: no bruits Resp Effort & Inspection: normal respiratory effort and not tachypneic Auscultation: no crackles, no rales, no rhonchi and no wheezes Cardio Rate: regular rate Rhythm: regular rhythm Heart sounds: no murmurs and normal S1 and S2 GI Palpation (GI): Soft to palpation, nontender, no hepatomegaly and no splenomegaly Auscultation: normal bowel sounds Skin General skin exam: no rashes or lesions noted and dry skin Neuro General: oriented to person, oriented to place and oriented to time Cranial nerves: Yes Equal, round and reactive pupils present Speech: No Abnormal speech present Gait exam (Neuro): Normal gait present Motor exam (neuro): no tremor noted Extrem Right upper extremity: full ROM Left upper extremity: full ROM Right lower extremity: full ROM; no edema Left lower extremity: full ROM; no edema Psych Mental Status: mental status grossly normal Speech and movement: Normal speech and movement present Affect: normal affect Attitude: cooperative Thought process: Normal thought process present Coding Level of Care Code Est Pt Level 4 (27601) Diagnoses Excessive menstruation at puberty N92.2 Menorrhagia type: with onset of menstrual periods MDD (major depressive disorder), recurrent episode, moderate F33.1 CHANG (generalized anxiety disorder) F41.1 Additional Codes CHANG-7 Assessment Billing - CHANG-7 Assessment Tool: CHANG-7 Assessment 42293 ([id number]) PHQ-9 - 79104 - PHQ-9 Billing: Yes ([id number]) Assessment & Plan Assessment & Plan (1) Heavy menstrual bleeding: Code(s): N92.0 - Excessive and frequent menstruation with regular cycle Category: Medical Qualifiers: Menorrhagia type: with onset of menstrual periods Qualified Code(s): N92.2 - Excessive menstruation at puberty Plan: I will proceed with arranging a pelvic ultrasound to further investigate the uterine causes of her heavy menstrual bleeding. Encouraged testing for anemia due to prolonged bleeding and advising hydration and dietary iron intake. Plans to reassess based on bleeding severity and symptoms. Discussed alternatives in managing hormonal imbalances. An urgent gynecological referral is in process to tailor contraceptive options suitable for minimizing symptoms. Current hormonal treatment discussion includes potential reduction or change. (2) MDD (major depressive disorder), recurrent episode, moderate: Code(s): F33.1 - Major depressive disorder, recurrent, moderate Category: Medical Plan: Patient's PHQ-9 score positive for major depressive disorder which has been existing condition for her. Her circumstances in her life are causing a lot of her depression at this time. She has been out of work due to worker's comp injury. She is interested in starting a daily medication to help her anxiety and depression. Will start sertraline 25 mg and up titrate to 50 mg per response. (3) CHANG (generalized anxiety disorder): Code(s): F41.1 - Generalized anxiety disorder Category: Medical Plan: As above, patient's chang 7 score positive for anxiety. Again will start SSRI therapy on a daily basis to help reduce her anxious symptoms. Again will still use lorazepam 0.5 mg on as needed basis for high points of anxiety. Orders: Orders Comprehensive Met. 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
[2024-07-18 11:01] VITALS: BP 144/96; PULSE 103; TEMP 36.3; O2SAT 98; BMI 27.3
== END 2024-07-18 11:45 | disposition home or self-care (01) ==
LOC: HO.HMCH 10:54
PROVIDERS: PCP Physician Assistant; Visit Provider Physician Assistant
DX: N92.0 Excessive and frequent menstruation with regular cycle (principal); F33.1 Major depressive disorder, recurrent, moderate; F41.1 Generalized anxiety disorder

== ENCOUNTER 2024-08-16 08:50 | Outpatient (REF) | payer OTHER, SELFPAY ==
[2024-08-16 12:32] LABS: CT PCR NOT DETECTED (Not Detect.); NG PCR NOT DETECTED (Not Detect.)
[2024-08-18 15:10] LABS: HPV Genotype 16 Negative (Negative); HPV Genotype 18 Negative (Negative); HPV High Risk Negative (Negative)
== END 2024-08-16 08:51 | disposition home or self-care (01) ==
LOC: HO.LNP 08:50
PROVIDERS: PCP Physician Assistant; Visit Provider Obstetrics & Gynecology
DX: Z01.419 Encounter for gynecological examination (general) (routine) without abnormal findings (principal); N93.9 Abnormal uterine and vaginal bleeding, unspecified
CPT/HCPCS: 87491; 87591; 87626; 88175

== ENCOUNTER 2024-08-16 08:50 | Outpatient (AMB) | payer OTHER, SELFPAY ==
--- NOTE | 2024-08-16 08:55 | MHC.OFFVIS ---
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 Complaining of vaginal bleeding will last few months Last Pap/HPV was many years No previous screening Mammogram [facility] Medical History Abdominal hernia Epigastric hernia Migraine Lump in the abdomen Surgical History History of surgery History of hernia surgery History of ovarian cystectomy History of tonsillectomy and adenoidectomy Family History Mother Fibromyalgia Father Lyme disease Paternal Grandmother History of bladder cancer, Onset Age: 30 History of ovarian cancer Maternal Aunt History of kidney cancer Brother Mental problem Substance abuse Social History Housing: Apartment Are you a primary child care provider to a significant other at home: No Do you presently have visiting nurse or other home services: No Alcohol intake: former Patient Tobacco Use Status: Former Tobacco user e-Cigarette/Vaping Use: Never Used Second Hand Smoke Exposure: Yes Patient : No service: No Current occupational status: employed Current occupation: [employer] Cognitive needs: No Hearing needs: No Vision needs: No Female Reproductive History Menstrual Age of Menarche: 10 Date of last menstrual period: 05/30/24 control method: pills Review of Systems Const All systems reviewed & are unremarkable except as noted in HPI and below Card Reports as per HPI Resp Reports as per HPI GI Reports as per HPI and Reports no additional complaints Reports as per HPI Physical Exam Vital Signs: Last Vital Signs BP 118/74 08/16/24 09:04 BMI result Body Mass Index 26.9 Const General: cooperative, healthy appearing and comfortable Chest Chest palpation & inspection: normal inspection of the chest and normal palpation of entire chest wall Breast/axilla inspection: normal inspection of the breasts and normal inspection of the axillae Breast/axilla palpation: normal palpation of the breasts, normal palpation of the axillae and no axillary lymphadenopathy Resp Effort & Inspection: normal respiratory effort Auscultation: clear to auscultation bilaterally Percussion: percussion normal Cardio Palpation: normal PMI Rate: regular rate Rhythm: regular rhythm Heart sounds: no murmurs and no rubs Peripheral pulses: Peripheral pulses 2+ throughout GI Inspection: Yes normal to inspection Palpation (GI): Soft to palpation, nontender, no guarding, not rigid and No hepatosplenomegaly present Percussion: Yes normal to percussion Auscultation: normal bowel sounds Rectal Exam - Female: deferred General: Yes bladder normal to palpation External Female Exam: No lesion Speculum Exam - Vagina: normal appearance of the vagina, normal palpation, normal vaginal discharge and not erythematous Speculum Exam - Cervix: normal appearance of the cervix and normal palpation Bimanual exam- vagina & uterus: normal bimanual exam, normal palpation, uterine size normal, bladder normal to palpation, consistency normal and normal palpation Bimanual Exam- Adnexa, other: normal adnexae, no masses and no tenderness Assessment & Plan Assessment & Plan (1) Well woman exam: Code(s): Z01.419 - Encounter for gynecological examination (general) (routine) without abnormal findings Category: Medical Plan: Cotesting done. Mammogram ordered. Counseled the patient about the recommended dietary allowance of 1000 mg of Calcium & 600 IU of vitamin D. The patient was instructed to perform monthly self-breast exams and to schedule an annual exam in a year; All questions answered and the patient verbalized understanding. Instructed the patient to schedule annual exam in a year (2) Abnormal uterine bleeding (AUB): Comment: On norethiidrone Code(s): N93.9 - Abnormal uterine and vaginal bleeding, unspecified Category: Medical Plan: Discussed with the patient norethindrone has a higher failure rate, instructions given to the patient to use it daily the same time. Once AUB workup is back will discuss different options of control meanwhile instructions given the patient to use a backup method for control for the coming 2 weeks. Co testing done, GC and chlamydia taken CBC, TSH, HCG, and pelvic ultrasound ordered. Discussed with the patient the different causes of abnormal bleeding including thyroid disorders, uterine and ovarian pathology, endometrial hyperplasia, carcinoma and other potential causes. Discussed with the patient the work up including CBC (to r/o anemia), TSH, pelvic Ultrasound, endometrial biopsy to r/o endometrial pathology. All questions answered and the patient verbalized understanding. Instructed the patient to schedule an appointment for an endometrial biopsy in 2 weeks. Orders: Orders Complete Blood Count no Diff Today N93.9 - Abnormal uterine and vaginal bleeding, unspecified TSH reflex Free T4 Today N93.9 - Abnormal uterine and vaginal bleeding, unspecified HCG Quantitative Today N93.9 - Abnormal uterine and vaginal bleeding, unspecified US pelvic and transvaginal Today N93.9 - Abnormal uterine and vaginal bleeding, unspecified MM screening mammo BI Today Z12.31 - Encounter for screening mammogram for malignant neoplasm of breast Coding Level of Care Code New Pt Prev Care 40-64y(07814) Diagnoses Well woman exam Z01.419 Abnormal uterine bleeding (AUB) N93.9
[2024-08-16 09:04] VITALS: BP 118/74; BMI 26.9
--- OUTSIDE RECORDS SUMMARY | 2024-08-16 09:25 | XMS_ITS ---
Author Organization Unknown Patient Care team information Name Category Status Period Participants - - Proposed period not known - - - Proposed period not known -
== END 2024-08-16 09:41 | disposition home or self-care (01) ==
LOC: HO.HWS 08:51
PROVIDERS: PCP Physician Assistant; Visit Provider Obstetrics & Gynecology
DX: Z01.419 Encounter for gynecological examination (general) (routine) without abnormal findings (principal); N93.9 Abnormal uterine and vaginal bleeding, unspecified
CPT/HCPCS: 99386; 99459

== ENCOUNTER 2024-08-30 11:19 | Outpatient (AMB) | payer OTHER, SELFPAY ==
--- NOTE | 2024-08-30 11:28 | MHC.OFFVIS ---
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 The patient has history of herpes outbreak would like Valtrex prescription. [facility] Medical History Abdominal hernia Epigastric hernia Migraine Lump in the abdomen Surgical History History of surgery History of hernia surgery History of ovarian cystectomy History of tonsillectomy and adenoidectomy Family History Mother Fibromyalgia Father Lyme disease Paternal Grandmother History of bladder cancer, Onset Age: 30 History of ovarian cancer Maternal Aunt History of kidney cancer Brother Mental problem Substance abuse Social History Housing: Apartment Are you a primary home care consultant to a significant other at home: No Do you presently have visiting nurse or other home services: No Alcohol intake: former Patient Tobacco Use Status: Former Tobacco user e-Cigarette/Vaping Use: Never Used Second Hand Smoke Exposure: Yes service: No Current occupational status: employed Current occupation: [employer] Cognitive needs: No Hearing needs: No Vision needs: No Female Reproductive History Menstrual Age of Menarche: 10 Review of Systems Const All systems reviewed & are unremarkable except as noted in HPI and below Reports as per HPI and Reports no additional complaints GI Reports no additional complaints Reports no additional complaints Office Procedures Endometrial Biopsy Details: The patient was counseled regarding the indication and benefits of endometrial sampling to rule out endometrial pathology including not limited to endometrial hyperplasia or endometrial cancer and others; The alternatives (Either do nothing vs. hysteroscopy D&C) & the risks were discussed with the patient including but not limited: pain, uterine perforation, bleeding, infection, possible injury to bladder, bowel, ureter, possible need for blood transfusion with all its possible risks. The patient verbalized understanding all questions answered and signed consent. Urine test done in the office was negative The patient was placed into the dorsal lithotomy position; a speculum was inserted in the vagina. Using aseptic technique for the procedure, the cervix was cleansed with Betadine. The anterior lip of the cervix was grasped with a single tooth tenaculum. The uterus was sounded to 7 cm with a 4 mm Pipelle was used. Tissues samples were obtained and placed in formalin, in a patient labeled container and sent to the pathology department. At the end of the procedure, there was minimal bleeding noted The patient tolerated the procedure well and was discharged in good condition with the following instructions: Nothing in the vagina until the bleeding stops. No sex until the bleeding stops, to call if any of the following occurs: fever (>100.4), flu-like symptoms, abdominal pain, heavy bleeding, four smelling vaginal discharge. The patient was instructed to schedule a Follow up appointment in 2 weeks to discuss pathology results of the biopsy and treatment options. This note was generated with a voice recognition program. Some errors may have been overlooked during the review of this note. Sometimes these errors may affect the content or meaning of a given sentence. [id number] Biopsy Assessment & Plan Assessment & Plan (1) Abnormal uterine bleeding (AUB): Comment: On norethiidrone Code(s): N93.9 - Abnormal uterine and vaginal bleeding, unspecified Category: Medical Plan: EMB done, see procedure note (2) Screening for STD (sexually transmitted disease): Code(s): Z11.3 - Encounter for screening for infections with a predominantly sexual mode of transmission Category: Medical Plan: STD screening tests done includes: BV panel for trichomonas, GC/CT will send patient for serology std screening for HIV, RPR, Hep b s Ag, HepC Ab. Instructions given the patient to schedule a follow-up appointment for repeat serology screen in 6 months for possible false negatives. (3) Herpes: Code(s): B00.9 - Herpesviral infection, unspecified Category: Medical Plan: Valtrex Prescription 500 mg p.o. b.i.d. for 3 days p.r.n. outbreak with 6 refills was sent to the patient pharmacy. Orders: Orders AMB HCG Urine Test Today Z32.02 - Encounter for test, result negative Bacterial Vaginosis Panel Today N76.0 - Acute vaginitis HIV Ab/Ag Today Z20.2 - Contact with and (suspected) exposure to infections with a predominantly sexual mode of transmission Syphilis Screen Today Z20.2 - Contact with and (suspected) exposure to infections with a predominantly sexual mode of transmission Surgical Today N93.9 - Abnormal uterine and vaginal bleeding, unspecified Hepatitis B Surface Antigen Today Z20.2 - Contact with and (suspected) exposure to infections with a predominantly sexual mode of transmission Hepatitis C Antibody Today Z20.2 - Contact with and (suspected) exposure to infections with a predominantly sexual mode of transmission AMB Endometrial Biopsy Today N93.9 - Abnormal uterine and vaginal bleeding, unspecified Medications: New valacyclovir 500 mg PO BID 6 tabs 0RF 3 days Coding Level of Care Code Est Pt Level 3 (32455) Procedure Only Diagnoses Abnormal uterine bleeding (AUB) N93.9 Screening for STD (sexually transmitted disease) Z11.3 Herpes B00.9 CPT Codes Endometrial Biopsy - CPT: 12796-Britohflhma Biopsy ([id number])
== END 2024-08-30 12:12 | disposition home or self-care (01) ==
LOC: HO.HWS 11:19
PROVIDERS: PCP Physician Assistant; Visit Provider Obstetrics & Gynecology
DX: B00.9 Herpesviral infection, unspecified (principal); Z11.3 Encounter for screening for infections with a predominantly sexual mode of transmission; N93.9 Abnormal uterine and vaginal bleeding, unspecified
CPT/HCPCS: 58100; 99213

== ENCOUNTER 2024-08-30 11:45 | Outpatient (REF) | payer OTHER, SELFPAY ==
[2024-08-30 13:41] LABS: Hematocrit 35.5 % (37.0-47.0); Hemoglobin 12.4 g/dl (12.0-16.0); Mean Corpuscular HGB Conc 34.9 g/dl (31.0-35.0); Mean Corpuscular Hemoglobin 32.0 pg (27.0-33.0); Mean Corpuscular Volume 91.5 fL (80.0-98.0); NRBC Abs Auto 0.000 X10*3/uL (0.0-0.012); NRBC Pct Auto 0.0 /100WBC (0.0-0.2); Platelet Count 232 X10*3/uL (160-400); Red Blood Count 3.88 X10*6/uL (4.20-5.50); White Blood Count 7.0 X10*3/uL (4.8-10.8)
[2024-08-30 14:47] LABS: Bacterial Vaginosis PCR POSITIVE (Negative); Candida Group PCR DETECTED (Not Detect); Candida glab krusei PCR NOT DETECTED (Not Detect); Trichomonas vaginalis PCR NOT DETECTED (Not Detect)
[2024-08-31 06:42] LABS: HBsAGNum1 0.33 S/CO (0.00-0.99); HIV Num 1 0.05 S/CO (0.00-0.99); Hepatitis B Surface Antigen Negative (Negative); ~HepC Num1 0.13 S/CO (0.00-0.79); ~Hepatitis C Antibody Nonreactive (Nonreactive)
[2024-08-31 06:56] LABS: Syphilis Screen Nonreactive (Nonreactive)
== END 2024-08-30 11:46 | disposition home or self-care (01) ==
LOC: HO.LNP 11:45
PROVIDERS: Visit Provider Obstetrics & Gynecology
DX: N93.9 Abnormal uterine and vaginal bleeding, unspecified (principal); Z32.02 Encounter for pregnancy test, result negative; N76.0 Acute vaginitis; B00.9 Herpesviral infection, unspecified; Z20.2 Contact with and (suspected) exposure to infections with a predominantly sexual mode of transmission; Z79.3 Long term (current) use of hormonal contraceptives
CPT/HCPCS: 58100; 81515; 84443; 84702; 85027; 86780; 86803; 87340; 87389; 88305

== ENCOUNTER 2024-09-05 12:15 | Outpatient (AMB) | payer OTHER, SELFPAY ==
--- NOTE | 2024-09-05 12:27 | MHC.OFFVIS ---
Vital Signs 09/05/24 12:30 09/05/24 12:51 Height 5 ft 4 in Weight 157 lb BMI 26.9 BP 136/82 Temp 97.6 F Temp Source Oral Intake Visit Reasons: EMB results/pre op Bulk Receiver Required: No Information Interpreted: non-clinical & clinical Physical Therapy Coordinator: Physical Therapy Coordinator Present (Mindy) Accompanied by: Self / Same As Patient Allergies prednisone (PREDNISONE) Allergy (Unknown, Verified 09/05/24 12:30) SWELLING ketorolac Allergy (Verified 09/05/24 12:30) Swelling HPI Comments Details: The patient is presenting after endometrial biopsy. The patient complaining of pelvic pain over the last 3 days, no vaginal discharge or bleeding, no feverishness or chills . Has been or metronidazole since 08/31 for positive BV The endometrial biopsy pathology report showed the following: Endometrium, biopsy: Endometrial polyps and background weakly proliferative endometrium; no atypia identified [facility] Medical History Abdominal hernia Epigastric hernia Migraine Lump in the abdomen Surgical History History of surgery History of hernia surgery History of ovarian cystectomy History of tonsillectomy and adenoidectomy Family History Mother Fibromyalgia Father Lyme disease Paternal Grandmother History of bladder cancer, Onset Age: 30 History of ovarian cancer Maternal Aunt History of kidney cancer Brother Mental problem Substance abuse Social History Housing: Apartment Are you a primary client care manager to a significant other at home: No Do you presently have visiting nurse or other home services: No Alcohol intake: former Patient Tobacco Use Status: Former Tobacco user e-Cigarette/Vaping Use: Never Used Second Hand Smoke Exposure: Yes service: No Current occupational status: employed Current occupation: [employer] Cognitive needs: No Hearing needs: No Vision needs: No Female Reproductive History Menstrual Age of Menarche: 10 Physical Exam Vital Signs: Last Vital Signs Temp 97.6 F 09/05/24 12:51 BP 136/82 09/05/24 12:30 BMI result Body Mass Index 26.9 Office Meds ceftriaxone 500 mg solution for injection Performing Provider: Chandra Gomez MD Performing Location: [facility] Administered by: Kate Sparks LPN on 09/05/24 15:53 Dose Route Admin Location Dispensed Lot Number Expiration Date [facility] Animal Care Specialist 500 mg IM rt. gluteus 500 mg [id number] 04/21/26 8049-7883-54 [employer]OS[employer] Total Dispensed Waste 500 mg 0 % Assessment & Plan Assessment & Plan (1) Endometritis: Code(s): N71.9 - Inflammatory disease of uterus, unspecified Category: Medical Plan: Urine dip and test done in the office was negative. CBC stat showed white count of 3.69 and H&H of 11.8/34.3 Pelvic ultrasound stat ordered showed the following: IMPRESSION: 3.9 x 3.2 x 3.7 cm left ovarian simple cyst. Otherwise unremarkable pelvic ultrasound. Discussed with the patient the results of the workup, will treat with endometritis ceftriaxone 500 mg IM, doxycycline 100 mg p.o. b.i.d. for 14 days and metronidazole for a total of 14 days, already started for BV will add additional 7 days of 500 mg p.o. b.i.d. Instructions given the patient to call in case of fever above 100.4, nausea or vomiting about persistence or worsening of her pain more than 48 hours and follow-up in 14 days. All questions answered, the patient verbalized understanding (2) Abnormal uterine bleeding (AUB): Comment: On norethiidrone Endometrial polyp on EMB pathology Code(s): N93.9 - Abnormal uterine and vaginal bleeding, unspecified Category: Medical Plan: Discussed with the patient the results the pathology showing endometrial polyp, recommended hysteroscopy D&C possible polypectomy after endometrial cyst is resolved. Will discuss the details of the procedure and schedule it in 14 days. All questions answered, the patient verbalized understanding Orders: Orders Complete Blood Count no Diff Today N71.9 - Inflammatory disease of uterus, unspecified AMB Ceftriaxone Injection Today N71.9 - Inflammatory disease of uterus, unspecified US pelvic and transvaginal Today N71.9 - Inflammatory disease of uterus, unspecified, R10.2 - Pelvic and perineal pain Medications: New metronidazole 500 mg PO BID 14 tabs 0RF 7 days doxycycline hyclate 100 mg PO BID 28 caps 0RF 14 days Coding Diagnoses Endometritis N71.9 Abnormal uterine bleeding (AUB) N93.9
[2024-09-05 12:30] VITALS: BP 136/82; BMI 26.9
[2024-09-05 12:51] VITALS: TEMP 36.4
== END 2024-09-05 13:28 | disposition home or self-care (01) ==
LOC: HO.HWS 12:15
PROVIDERS: PCP Physician Assistant; Visit Provider Obstetrics & Gynecology
DX: N71.9 Inflammatory disease of uterus, unspecified (principal)

== ENCOUNTER 2024-09-05 13:13 | Outpatient (REF) | payer OTHER, SELFPAY ==
--- NOTE | ~2024-09-05 | US_ITS ---
EXAMINATION: US PELVIS TRANSABDOMINAL AND TRANSVAGINAL HISTORY: R10.2 - Pelvic and perineal pain COMPARISON: Correlation is made with a CT of the abdomen and pelvis with contrast dated 10/22/2019 TECHNIQUE: Transabdominal and endovaginal real-time 2D turpin-scale ultrasound was performed. FINDINGS: Uterus: The uterus is normal in size, measuring 7.9 x 2.7 x 5.0 cm. Myometrium has a normal echotexture. No fibroids are identified. Endometrium: The endometrial stripe measures 2 mm in thickness. Right ovary: The right ovary measures 3.6 x 2.1 x 2.4 cm. The right ovary is normal in size and echotexture. Left ovary: The left ovary measures 4.8 x 3.8 x 4.3 cm. There is a 3.9 x 3.2 x 3.7 cm simple cyst. Pelvic fluid: none. US/US pelvic and transvaginal IMPRESSION: 3.9 x 3.2 x 3.7 cm left ovarian simple cyst. Otherwise unremarkable pelvic ultrasound. Electronically signed by: Bradley Browning MD 09/05/2024 03:26 PM EDT
[2024-09-05 13:28] LABS: Hematocrit 34.3 % (37.0-47.0); Hemoglobin 11.8 g/dl (12.0-16.0); Mean Corpuscular HGB Conc 34.4 g/dl (31.0-35.0); Mean Corpuscular Hemoglobin 32.0 pg (27.0-33.0); Mean Corpuscular Volume 93.0 fL (80.0-98.0); NRBC Abs Auto 0.000 X10*3/uL (0.0-0.012); NRBC Pct Auto 0.0 /100WBC (0.0-0.2); Platelet Count 181 X10*3/uL (160-400); Red Blood Count 3.69 X10*6/uL (4.20-5.50); White Blood Count 5.6 X10*3/uL (4.8-10.8)
== END 2024-09-05 13:14 | disposition home or self-care (01) ==
LOC: HO.US 13:13
PROVIDERS: PCP Physician Assistant; Referring Provider Obstetrics & Gynecology; Visit Provider Physician Assistant
DX: R10.2 Pelvic and perineal pain (principal); N83.292 Other ovarian cyst, left side; N71.9 Inflammatory disease of uterus, unspecified
CPT/HCPCS: 36415; 76830; 76856; 85027; 96372; J0696

== ENCOUNTER → 2024-09-05 13:24 | Outpatient (BNV) | payer OTHER, SELFPAY | PROVIDERS: PCP Physician Assistant; Referring Provider Obstetrics & Gynecology; Visit Provider Radiology Diagnostic Radiology | DX: R10.2 Pelvic and perineal pain (principal) | CPT/HCPCS: 76830; 76856 ==

== ENCOUNTER 2024-09-13 11:00 | Outpatient (REF) | payer OTHER, SELFPAY ==
[2024-09-13 11:18] LABS: Hematocrit 35.3 % (37.0-47.0); Hemoglobin 12.2 g/dl (12.0-16.0); Mean Corpuscular HGB Conc 34.6 g/dl (31.0-35.0); Mean Corpuscular Hemoglobin 32.1 pg (27.0-33.0); Mean Corpuscular Volume 92.9 fL (80.0-98.0); NRBC Abs Auto 0.000 X10*3/uL (0.0-0.012); NRBC Pct Auto 0.0 /100WBC (0.0-0.2); Platelet Count 238 X10*3/uL (160-400); Red Blood Count 3.80 X10*6/uL (4.20-5.50); White Blood Count 5.3 X10*3/uL (4.8-10.8)
--- OUTSIDE RECORDS SUMMARY | 2024-09-13 12:01 | XMS_ITS | Clinical Summary ---
Author Organization [facility] Address [address] [place] [address] Phone Care Team Providers Care Spool Worker Name Role Phone Yo Clemente Primary Care Provider [phone] Allergies No known active allergies Encounters Date Type Department Care Team Description 09/11/2024 4:53 PM EDT - 09/11/2024 4:54 PM EDT Emergency [facility] Emergency [address] [place] [address] Viviana Wadsworth MD Notash, Mark, MD Pelvic pain (Primary Dx); Episode of heavy vaginal bleeding; Fall, initial encounter; Pain of right thumb Discharge Disposition: Left Against Medical Advice from Last 3 Months Social History Tobacco Use Types Packs/Day Years Used Date Smoking Tobacco: Former Cigarettes Smokeless Tobacco: Never Tobacco Cessation:Counseling Given: Not Answered Comments Unknown Sex and Gender Information Value Date Recorded Sex Assigned at Not on file Legal Sex Female 5:01 PM EST Gender Identity Not on file Sexual Orientation Not on file Obstetrics History Last Filed Vital Signs Vital Sign Reading Time Taken Comments Blood Pressure 132/85 09/11/2024 1:11 PM EDT Pulse 89 09/11/2024 1:11 PM EDT Temperature 36.5 C (97.7 F) 09/11/2024 1:11 PM EDT Respiratory Rate 18 09/11/2024 1:11 PM EDT Oxygen Saturation 100% 09/11/2024 1:11 PM EDT Inhaled Oxygen Concentration - - Weight 70.3 kg (155 lb) 09/11/2024 1:11 PM EDT Height 162.6 cm (5' 4 ) 09/11/2024 1:11 PM EDT Body Mass Index 26.61 09/11/2024 1:11 PM EDT Plan of Treatment Health Maintenance Due Date Last Done Comments Breast Cancer Screening 1983 Hepatitis B Vaccines (1 of 3 - 19+ 3-dose series) 10/26/2002 Cervical Cancer Screening: P ap Smear 10/26/2004 COVID-19 Vaccine (2023-2 5 season) 2023 Depression Screening 02/23/2024 HIV Screening 09/12/2024 Hepatitis C Screening 09/12/2024 Social Influencers of Health Screening 09/12/2024 Influenza Vaccine (#1) 2024 DTaP,Tdap,and Td Vaccines (2 - Td or Tdap) 05/29/2027 05/28/2017 HIB Vaccines Aged Out No longer eligi ble based on patient's age to complete this topic HPV Vaccines Aged Out No longer eligi ble based on patient's age to complete this topic Hepatitis A Vaccines Aged Out No long er eligible based on patient's age to complete this topic IPV Vaccines Aged Out No longer eligi ble based on patient's age to complete this topic MMR Vaccines Aged Out No longer eligi ble based on patient's age to complete this topic Meningococcal ACWY Vaccine Aged Out N o longer eligible based on patient's age to complete this topic Meningococcal B Vaccine Aged Out No l onger eligible based on patient's age to complete this topic Pneumococcal Vaccine: Pediat rics (0 to 5 Years) and At-Risk Patients (6 to 49 Years) Aged Out No longer eligi ble based on patient's age to complete this topic RSV Immunization Patients Un essie 20 months Aged Out No longer eligible b ased on patient's age to complete this topic Varicella Vaccines Aged Out No longer eligible based on patient's age to complete this topic Procedures Procedure Name Priority Date/Time Associated Diagnosis Comments CBC WITH AUTO DIFFERENTIAL STAT 09/11/2024 3:02 PM EDT TYPE AND SCREEN STAT 09/11/2024 3:02 PM EDT BASIC METABOLIC PANEL STAT 09/11/2024 3:02 PM EDT CBC AND DIFFERENTIAL STAT 09/11/2024 3:02 PM EDT XR HAND 3+ VIEWS RIGHT STAT 09/11/2024 2:58 PM EDT from Last 3 Months Results * (ABNORMAL) CBC auto differential (09/11/2024 3:02 PM EDT) [facility] WBC 6.2 4.8 - 10.8 K/mcL LAB HEMETOLOGY METHOD 09/11/2024 3:[address] [facility] RBC 3.90 3.80 - 4.80 M/mcL LAB HEMETOLOGY METHOD 09/11/2024 3:[address] [facility] Hemoglobin 12.6 11.5 - 16.0 g/dL LAB HEMETOLOGY METHOD 09/11/2024 3:[address] [facility] Hematocrit 37.1 35.0 - 47.0 % LAB HEMETOLOGY METHOD 09/11/2024 3:[address] [facility] MCV 94.9 79.0 - 98.0 FL LAB HEMETOLOGY METHOD 09/11/2024 3:[address] [facility] MCH 32.2(H) 27.0 - 32.0 pcg LAB HEMETOLOGY METHOD 09/11/2024 3:[address] [facility] MCHC 34.0 32.0 - 37.0 g/dL LAB HEMETOLOGY METHOD 09/11/2024 3:[address] [facility] RDW 13.0 11.0 - 15.0 % LAB HEMETOLOGY METHOD 09/11/2024 3:[address] [facility] Platelets 242 130 - 400 K/mcL LAB HEMETOLOGY METHOD 09/11/2024 3:[address] [facility] MPV 10.6 7.0 - 11.0 FL LAB HEMETOLOGY METHOD 09/11/2024 3:[address] [facility] NRBC 0.0 <1.0 % [facility] NRBC Absolute 0.00 <0.10 K/mcL LAB HEMETOLOGY METHOD 09/11/2024 3:49 PM [facility] Neutrophils Relative 42.7 % LAB HEMETOLOGY METHOD 09/11/2024 3:49 PM [facility] Lymphocytes Relative 46.2 % LAB HEMETOLOGY METHOD 09/11/2024 3:49 PM [facility] Monocytes Relative 9.1 % LAB HEMETOLOGY METHOD 09/11/2024 3:49 PM [facility] Eosinophils Relative 1.3 % LAB HEMETOLOGY METHOD 09/11/2024 3:49 PM [facility] Basophils Relative 0.5 % LAB HEMETOLOGY METHOD 09/11/2024 3:49 PM [facility] Immature Granulocytes Relative 0.2 % LAB HEMETOLOGY METHOD 09/11/2024 3:49 PM [facility] Neutrophils Absolute 2.64 1.50 - 7.00 K/mcL LAB HEMETOLOGY METHOD 09/11/2024 3:49 PM [facility] Lymphocytes Absolute 2.85 1.00 - 5.00 K/mcL LAB HEMETOLOGY METHOD 09/11/2024 3:49 PM [facility] Monocytes Absolute 0.56 0.20 - 1.00 K/mcL LAB HEMETOLOGY METHOD 09/11/2024 3:49 PM [facility] Eosinophils Absolute 0.08 0.00 - 0.50 K/mcL LAB HEMETOLOGY METHOD 09/11/2024 3:49 PM [facility] Basophils Absolute 0.03 0.00 - 0.20 K/mcL LAB HEMETOLOGY METHOD 09/11/2024 3:49 PM [facility] Immature Granulocytes Absolute 0.01 0.00 - 0.03 K/mcL LAB HEMETOLOGY METHOD 09/11/2024 3:[address] [facility] Blood Venous blood specimen / Unknown Venipuncture / Unknown 09/11/2024 3:02 PM EDT 09/11/2024 3:36 PM EDT Viviana Wadsworth MD LAB BLOOD ORDERABLES Final Resul t Performing Organization Address [facility] Co de Phone Number [facility] [address] [place] [address], [place] [phone] * Type and screen (09/11/2024 3:02 PM EDT) ABO Group O 09/11/2024 4:[address] [facility] Rh Type Negative 09/11/2024 4:[address] [facility] Antibody Screen Negative 09/11/2024 4:[address] [facility] Blood Venous blood specimen / Unknown Venipuncture / Unknown 09/11/2024 3:02 PM EDT 09/11/2024 3:36 PM EDT us Viviana Wadsworth MD LAB BLOOD BANK TEST ORDERABLES F inal Result Performing Organization Address [facility]/ZIP Co de Phone Number [facility] [address] [place] [address], [place] [phone] * Basic metabolic panel (09/11/2024 3:02 PM EDT) Sodium 139 133 - 145 mmol/L LAB CHEMISTRY METHOD 09/11/2024 4:[address] [facility] Potassium 3.9 3.5 - 5.5 mmol/L LAB CHEMISTRY METHOD 09/11/2024 4:[address] [facility] Chloride 108 96 - 110 mmol/L LAB CHEMISTRY METHOD 09/11/2024 4:[address] [facility] CO2 26 21 - 32 mmol/L LAB CHEMISTRY METHOD 09/11/2024 4:[address] [facility] Anion Gap 5 3 - 11 LAB CHEMISTRY METHOD 09/11/2024 4:[address] [facility] Glucose 94 70 - 100 mg/dL LAB CHEMISTRY METHOD 09/11/2024 4:[address] [facility] BUN 9 5 - 25 mg/dL LAB CHEMISTRY METHOD 09/11/2024 4:[address] [facility] Creatinine 0.75 0.50 - 1.10 mg/dL LAB CHEMISTRY METHOD 09/11/2024 4:[address] [facility] eGFR 103 >=60 mL/min/1. 73m2 LAB CHEMISTRY METHOD 09/11/2024 4:[address] [facility] Comment:Calculation based on the Chronic Kidney Disease Epidemiology Collaboration (CKD-EPI) equation refit without adjustment for race. BUN/Creatinine Ratio 12.0 LAB CHEMISTRY METHOD 09/11/2024 4:[address] [facility] Calcium 9.3 8.5 - 10.5 mg/dL LAB CHEMISTRY METHOD 09/11/2024 4:[address] [facility] Blood Venous blood specimen / Unknown Venipuncture / Unknown 09/11/2024 3:02 PM EDT 09/11/2024 3:36 PM EDT us Viviana Wadsworth MD LAB BLOOD ORDERABLES Final Resul t [facility] [address] [place] [address], * XR Hand 3+ Views Right (09/11/2024 2:58 PM EDT) Anatomical Region Laterality Modality Upper Extremities, Hand Right Radiogra phic Imaging 09/11/2024 4:46 PM EDT Impressions 09/11/2024 4:46 PM EDT FINDINGS/IMPRESSION: No acute fracture. Normal alignment.. -------- FINAL REPORT -------- Dictated By: Jamar Holloway Dictated Date: 09/11/2024 16:46 ET Assigned Physician: Jamar Holloway Reviewed and Electronically Signed By: Jamar Holloway Signed Date: 09/11/2024 16:46 ET Workstation ID: [id number] Transcribed By: Self Edit Transcribed Date: 09/11/2024 16:46 ET Narrative 09/11/2024 4:46 PM EDT XR HAND 3+ VIEWS RIGHT INDICATION: fall, pain right thumb mostly, some in all fingers TECHNIQUE: XR HAND 3+ VIEWS RIGHT COMPARISON: No priors available. Procedure Note Jamar Holloway MD - 09/11/2024 XR HAND 3+ VIEWS RIGHT INDICATION: fall, pain right thumb mostly, some in all fingers TECHNIQUE: XR HAND 3+ VIEWS RIGHT COMPARISON: No priors available. IMPRESSION: FINDINGS/IMPRESSION: No acute fracture. Normal alignment.. -------- FINAL REPORT -------- Dictated By: Jamar Holloway Dictated Date: 09/11/2024 16:46 ET Assigned Physician: Jamar Holloway Reviewed and Electronically Signed By: Jamar Holloway Signed Date: 09/11/2024 16:46 ET Workstation ID: [id number] Transcribed By: Self Edit Transcribed Date: 09/11/2024 16:46 ET Viviana Wadsworth MD IMG XR PROCEDURES Final Result from Last 3 Months Insurance [employer] Care Teams Spool Worker Relationship Specialty Start Date End Date Yo Clemente PA [address] [place] [address] [place] [id number] PCP - General Physician Correctional Treatment Specialist 09/11/24
== END 2024-09-13 11:01 | disposition home or self-care (01) ==
LOC: HO.LAB 11:00
PROVIDERS: PCP Physician Assistant; Visit Provider Obstetrics & Gynecology
DX: N83.292 Other ovarian cyst, left side (principal); N93.9 Abnormal uterine and vaginal bleeding, unspecified; N84.0 Polyp of corpus uteri; R10.2 Pelvic and perineal pain; R31.29 Other microscopic hematuria; Z32.02 Encounter for pregnancy test, result negative
CPT/HCPCS: 36415; 81002; 81025; 85027

== ENCOUNTER 2024-09-13 11:16 | Outpatient (AMB) | payer OTHER, SELFPAY ==
--- NOTE | 2024-09-13 11:42 | MHC.OFFVIS ---
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 The patient is still on norethindrone CBC done today is white count of 3.8, H and H 12.2/35.5 compared to on 09/05 white count of 3.6 H&H 11.8/34.3 Pelvic ultrasound done on 09/05 was negative except for a 3.9 cm left simple ovarian cyst The patient was diagnose endometritis was given ceftriaxone on 09/05 has been on metronidazole with doxycycline since then GC/CT was negative BV panel showed positive BV and Yadira PFSH Medical History Abdominal hernia Epigastric hernia Migraine Lump in the abdomen Surgical History History of surgery History of hernia surgery History of ovarian cystectomy History of tonsillectomy and adenoidectomy Family History Mother Fibromyalgia Father Lyme disease Paternal Grandmother History of bladder cancer, Onset Age: 30 History of ovarian cancer Maternal Aunt History of kidney cancer Brother Mental problem Substance abuse Social History Housing: Apartment Are you a primary care transition coordinator to a significant other at home: No Do you presently have visiting nurse or other home services: No Alcohol intake: former Patient Tobacco Use Status: Former Tobacco user e-Cigarette/Vaping Use: Never Used Second Hand Smoke Exposure: Yes service: No Current occupational status: employed Current occupation: [employer] Cognitive needs: No Hearing needs: No Vision needs: No Female Reproductive History Menstrual Age of Menarche: 10 Review of Systems Const All systems reviewed & are unremarkable except as noted in HPI and below Physical Exam GI Palpation (GI): Soft to palpation and Tenderness to palpation present (GI) (Bilateral tenderness) Percussion: Yes normal to percussion General: Yes no CVA tenderness External Female Exam: normal external appearance and normal appearance of the urethra Speculum Exam - Vagina: normal appearance of the vagina, normal palpation, no lesions, no masses and other (Minimal blood per vagina) Speculum Exam - Cervix: normal appearance of the cervix, normal palpation, no lesions, no masses and Cervical tenderness present Bimanual exam- vagina & uterus: normal bimanual exam, normal palpation, uterine size normal, normal palpation, uterine shape normal, Cervical tenderness present, non-tender and cervical motion tenderness Bimanual Exam- Adnexa, other: normal adnexae Back/Spine/Pelvis Back: no CVA tenderness Assessment & Plan Assessment & Plan (1) Abnormal uterine bleeding (AUB): Comment: On norethiidrone Endometrial polyp on EMB pathology Code(s): N93.9 - Abnormal uterine and vaginal bleeding, unspecified Category: Medical Plan: UPT done in the office was negative Will defer the management for endometrial polyp and change norethindrone after the management of the pelvic pain Instructions given the patient to schedule a follow-up appointment within a week (2) Pelvic pain: Code(s): R10.2 - Pelvic and perineal pain Category: Medical Plan: Urine dip and UPT done in the office was negative. Discussed with the patient differential diagnosis for pelvic pain including but not limited to endometritis not responding to treatment, TOA, ruptured ovarian cyst, ovarian torsion , non gynecological causes and others The finding of her exam recommended the patient to go to emergency room to be evaluated khris. All questions answered, the patient verbalized understanding and agreed with the plan (3) Ovarian cyst: Code(s): N83.209 - Unspecified ovarian cyst, unspecified side Category: Medical Plan: Last ultrasound of the 3.9 cm left simple ovarian cyst, differential diagnosis includes but not limited to ovarian ruptured under ovarian torsion, recommended the patient to go to emergency room [facility] for an evaluation Coding Level of Care Code Est Pt Level 3 (11440) Diagnoses Abnormal uterine bleeding (AUB) N93.9 Pelvic pain R10.2 Ovarian cyst N83.209
== END 2024-09-13 12:15 | disposition home or self-care (01) ==
LOC: HO.HWS 11:16
PROVIDERS: PCP Physician Assistant; Visit Provider Obstetrics & Gynecology
DX: N93.9 Abnormal uterine and vaginal bleeding, unspecified (principal); R10.2 Pelvic and perineal pain; N83.209 Unspecified ovarian cyst, unspecified side; Z32.02 Encounter for pregnancy test, result negative; R31.29 Other microscopic hematuria
CPT/HCPCS: 99213

== ENCOUNTER 2024-09-13 12:20 | Outpatient (REF) | payer OTHER, SELFPAY | END 2024-09-13 12:21 | disposition home or self-care (01) | LOC: HO.LNP 12:20 | PROVIDERS: Visit Provider Obstetrics & Gynecology | DX: R10.2 Pelvic and perineal pain (principal) | CPT/HCPCS: 87086 ==

== ENCOUNTER 2024-09-20 12:01 | Outpatient (AMB) | payer OTHER, SELFPAY ==
--- NOTE | 2024-09-20 12:05 | A.OFFVIS_ITS ---
Intake Visit Reasons: Ultrasound follow up/ EMB results Accompanied by: Self / Same As Patient Allergies prednisone (PREDNISONE) Allergy (Unknown, Verified 09/13/24 11:42) SWELLING ketorolac Allergy (Verified 09/13/24 11:42) Swelling HPI Comments Details: Presenting for AUB and pelvic pain follow-up. Doing well with no complaints, no pelvic pain or bleeding. The workup done so far include the followin09/05/2024 pelvic ultrasound showed the following: H&H 12.2/35.5 TSH, hCG negative GC/CT negative IMPRESSION: 3.9 x 3.2 x 3.7 cm left ovarian simple cyst. Otherwise unremarkable pelvic ultrasound. EMB pathology showed the followin09/05/2024 Endometrial polyps and background weakly proliferative endometrium; no atypia identified. Mammogram scheduled on 10/17 [facility] Medical History Abdominal hernia Epigastric hernia Migraine Lump in the abdomen Surgical History History of surgery History of hernia surgery History of ovarian cystectomy History of tonsillectomy and adenoidectomy Family History Mother Fibromyalgia Father Lyme disease Paternal Grandmother History of bladder cancer, Onset Age: 30 History of ovarian cancer Maternal Aunt History of kidney cancer Brother Mental problem Substance abuse Social History Housing: Apartment Are you a primary small animal caretaker to a significant other at home: No Do you presently have visiting nurse or other home services: No Alcohol intake: former Patient Tobacco Use Status: Former Tobacco user e-Cigarette/Vaping Use: Never Used Second Hand Smoke Exposure: Yes service: No Current occupational status: employed Current occupation: [employer] Cognitive needs: No Hearing needs: No Vision needs: No Female Reproductive History Menstrual Age of Menarche: 10 Review of Systems Const All systems reviewed & are unremarkable except as noted in HPI and below Reports as per HPI and Reports no additional complaints GI Reports no additional complaints Reports no additional complaints Assessment & Plan Assessment & Plan (1) Abnormal uterine bleeding (AUB): Comment: On norethindrone Endometrial polyp on EMB pathology Endometrial stripe 2 mm by ultrasound Code(s): N93.9 - Abnormal uterine and vaginal bleeding, unspecified Category: Medical Plan: Discussed with the patient the results of the EMB showing proliferative endometrium with endometrial polyp, in addition discussed with the patient endometrial stripe measuring 2 mm, with a endometrial polyp being unlikely. Options of treatment discussed with the patient include expectant management with treatment for AUB if AUB recurs next step is hysteroscopy D&C versus hyster oscopy D&C possible polypectomy to start with and treat accordingly. All pros and cons, risks and benefits of each approach were discussed with the patient, the patient decided to proceed with expectant management for the time being and stay on norethindrone 0.35 mg p.o. q.d. instructions given the patient is schedule an ultrasound to follow-up on the endometrial thickness and a follow-up appointment three-months. If endometrial stripe is still thin with AUB resolved (2) Family planning: Code(s): Z30.09 - Encounter for other general counseling and advice on contraception Category: Social Hx Plan: Discussed with the patient the different options of control including control pills/Nuvaring (contraindicated with migraine), DMPA, different types of IUD ?s, norethindrone, sterilization. All the pros, cons, risks and benefits of each were discussed with the patient. The patient decided to stay on norethindrone. Explained to the patient the mechanism of action and higher failure rate, recommended the patient to take daily pill the same time and use condom use as a backup method of control. The patient would like to think about the Mirena IUD and reconsider within few months. Norethindrone 0.35 mg p.o. q.d. for 12 weeks sent to the patient's pharmacy (3) Ovarian cyst: Code(s): N83.209 - Unspecified ovarian cyst, unspecified side Category: Medical Plan: Pelvic ultrasound ordered in 3 months. Instructions given the patient is schedule an ultrasound follow-up appointment three-month. All questions answered, the patient verbalized understanding Orders: Orders US pelvic and transvaginal 3 Months N83.209 - Unspecified ovarian cyst, unspecified side Medications: Changed From norethindrone (contraceptive) (Lakshmi-BE) 0.35 mg PO DAILY 26 weeks 182 tabs 0RF To norethindrone (contraceptive) (Lakshmi-BE) 0.35 mg PO DAILY 84 tabs 0RF 12 weeks From norethindrone (contraceptive) (Lakshmi-BE) 0.35 mg PO DAILY To norethindrone (contraceptive) (Lakshmi-BE) 0.35 mg PO DAILY 26 weeks 182 tabs 0RF Coding Level of Care Code Est Pt Level 3 (30106) Diagnoses Abnormal uterine bleeding (AUB) N93.9 Family planning Z30.09 Ovarian cyst N83.209
--- OUTSIDE RECORDS SUMMARY | 2024-09-20 12:51 | XMS_ITS | Clinical Summary ---
Author Organization [facility] Address [address] [place] [address] Phone Care Team Providers Care Repair Order Clerk Name Role Phone Yo Clemente Primary Care Provider Allergies No known active allergies Encounters Date Type Department Care Team Description 09/11/2024 4:53 PM EDT - 09/11/2024 4:54 PM EDT Emergency [facility] Emergency [address] [place] [address] Viviana Wadsworth MD Notash, Mark, [...] CBC auto differential (09/11/2024 3:02 PM EDT) [facility] WBC 6.2 4.8 - 10.8 K/mcL LAB HEMETOLOGY METHOD 09/11/2024 3:49 PM EDT [facility] RBC 3.90 3.80 - 4.80 M/mcL LAB HEMETOLOGY METHOD 09/11/2024 3:49 PM EDT [facility] Hemoglobin 12.6 11.5 - 16.0 g/dL LAB HEMETOLOGY METHOD 09/11/2024 3:49 PM EDT [facility] Hematocrit 37.1 35.0 - 47.0 % LAB HEMETOLOGY METHOD 09/11/2024 3:49 PM EDT [facility] MCV 94.9 79.0 - 98.0 FL LAB HEMETOLOGY METHOD 09/11/2024 3:49 PM EDT [facility] MCH 32.2(H) 27.0 - 32.0 pcg LAB HEMETOLOGY METHOD 09/11/2024 3:49 PM EDT [facility] MCHC 34.0 32.0 - 37.0 g/dL LAB HEMETOLOGY METHOD 09/11/2024 3:49 PM EDT [facility] RDW 13.0 11.0 - 15.0 % LAB HEMETOLOGY METHOD 09/11/2024 3:49 PM EDT [facility] Platelets 242 130 - 400 K/mcL LAB HEMETOLOGY METHOD 09/11/2024 3:49 PM EDT [facility] MPV 10.6 7.0 - 11.0 FL LAB HEMETOLOGY METHOD 09/11/2024 3:49 PM EDT [facility] NRBC 0.0 <1.0 % LAB [facility]OLOGY [facility] NR[facility] Absolute 0.00 <0.10 K/mcL LAB HEMETOLOGY METHOD 09/11/2024 3:49 PM [facility] Neutrophils Relative 42.7 % LAB HEMETOLOGY METHOD 09/11/2024 3:49 PM [facility] Lymphocytes Relative 46.2 % LAB HEMETOLOGY METHOD 09/11/2024 3:49 PM [facility] Monocytes Relative 9.1 % LAB HEMETOLOGY METHOD 09/11/2024 3:49 PM [facility] Eosinophils Relative 1.3 % LAB HEMETOLOGY METHOD 09/11/2024 3:49 PM [facility] Basophils Relative 0.5 % LAB HEMETOLOGY METHOD 09/11/2024 3:49 PM [facility] Immature Granulocytes Relative 0.2 % LAB HEMETOLOGY METHOD 09/11/2024 3:49 PM [facility] Neutrophils Absolute 2.64 1.50 - 7.00 K/mcL LAB HEMETOLOGY METHOD 09/11/2024 3:49 PM [facility] Lymphocytes Absolute 2.85 1.00 - 5.00 K/mcL LAB HEMETOLOGY METHOD 09/11/2024 3:49 PM [facility] Monocytes Absolute 0.56 0.20 - 1.00 K/mcL LAB HEMETOLOGY METHOD 09/11/2024 3:49 PM [facility] Eosinophils Absolute 0.08 0.00 - 0.50 K/mcL LAB HEMETOLOGY METHOD 09/11/2024 3:49 PM [facility] Basophils Absolute 0.03 0.00 - 0.20 K/mcL LAB HEMETOLOGY METHOD 09/11/2024 3:49 PM [facility] Immature Granulocytes Absolute 0.01 0.00 - 0.03 K/mcL LAB HEMETOLOGY METHOD 09/11/2024 3:49 PM EDT [facility] Blood Venous blood specimen / Unknown Venipuncture / Unknown 09/11/2024 3:02 PM EDT 09/11/2024 3:36 PM EDT Viviana Wadsworth MD LAB BLOOD ORDERABLES Final Resul t Performing Organization Address [facility] Co de Phone Number [facility] [address] [place] [address], [place] [phone] * Type and screen (09/11/2024 3:02 PM EDT) ABO Group O 09/11/2024 4:45 PM EDT [facility] Rh Type Negative 09/11/2024 4:45 PM EDT [facility] Antibody Screen Negative 09/11/2024 4:45 PM EDT [facility] Blood Venous blood specimen / Unknown Venipuncture / Unknown 09/11/2024 3:02 PM EDT 09/11/2024 3:36 PM EDT us Viviana Wadsworth MD LAB BLOOD BANK TEST ORDERABLES F inal Result Performing Organization Address [facility]/ZIP Co de Phone Number [facility] [address] [place] [address], [place] [phone] * Basic metabolic panel (09/11/2024 3:02 PM EDT) Sodium 139 133 - 145 mmol/L LAB CHEMISTRY METHOD 09/11/2024 4:40 PM EDT [facility] Potassium 3.9 3.5 - 5.5 mmol/L LAB CHEMISTRY METHOD 09/11/2024 4:40 PM EDT [facility] Chloride 108 96 - 110 mmol/L LAB CHEMISTRY METHOD 09/11/2024 4:40 PM EDT [facility] CO2 26 21 - 32 mmol/L LAB CHEMISTRY METHOD 09/11/2024 4:40 PM EDT [facility] Anion Gap 5 3 - 11 LAB CHEMISTRY METHOD 09/11/2024 4:40 PM EDT [facility] Glucose 94 70 - 100 mg/dL LAB CHEMISTRY METHOD 09/11/2024 4:40 PM EDT [facility] BUN 9 5 - 25 mg/dL LAB CHEMISTRY METHOD 09/11/2024 4:40 PM T [facility] Creatinine 0.75 0.50 - 1.10 mg/dL LAB CHEMISTRY METHOD 09/11/2024 4:40 PM EDT [facility] eGFR 103 >=60 mL/min/1. 73m2 LAB CHEMISTRY METHOD 09/11/2024 4:40 PM EDT [facility] Comment:Calculation based on the Chronic Kidney Disease Epidemiology Collaboration (CKD-EPI) equation refit without adjustment for race. BUN/Creatinine Ratio 12.0 LAB CHEMISTRY METHOD 09/11/2024 4:40 PM T [facility] Calcium 9.3 8.5 - 10.5 mg/dL LAB CHEMISTRY METHOD 09/11/2024 4:40 PM T [facility] Blood Venous blood specimen / Unknown Venipuncture / Unknown 09/11/2024 3:02 PM EDT 09/11/2024 3:36 PM EDT us Viviana Wadsworth MD LAB BLOOD ORDERABLES Final Resul t [facility] [address] [place] [address], * XR Hand 3+ Views Right (09/11/2024 [...] Signed Date: 09/11/2024 16:46 ET Workstation ID: [id number] Transcribed By: Self Edit Transcribed Date: 09/11/2024 [...] alignment.. -------- FINAL REPORT -------- Dictated By: aJmar Holloway Dictated Date: 09/11/2024 16:46 ET Assigned Physician: Jamar Holloway Reviewed and Electronically Signed By: Jamar Holloway Signed Date: 09/11/2024 16:46 ET Workstation ID: [id number] Transcribed By: Self Edit Transcribed Date: 09/11/2024 16:46 ET Viviana Wadsworth MD IMG XR PROCEDURES Final Result from Last 3 Months Insurance [employer] Care Teams Repair Order Clerk Relationship Specialty Start Date End Date Yo Clemente PA [address] [place] [address] [place] [phone] PCP - General Physician [facility] [facility] Vat Worker 09/11/24
== END 2024-09-20 12:53 | disposition home or self-care (01) ==
LOC: HO.HWS 12:02
PROVIDERS: PCP Physician Assistant; Visit Provider Obstetrics & Gynecology
DX: N93.9 Abnormal uterine and vaginal bleeding, unspecified (principal); Z30.09 Encounter for other general counseling and advice on contraception; N83.209 Unspecified ovarian cyst, unspecified side
CPT/HCPCS: 99213